=== PATIENT | female | born 1955 ===

== ENCOUNTER 2024-09-21 14:07 | Outpatient (AMB) | payer MEDICARE, BC, SELFPAY ==
--- NOTE | 2024-09-21 14:12 | A.OFFVIS_ITS ---
Intake Visit Reasons: renal cysts Intake Note: New Patient presents for initial visit for renal cysts Urology Medications: none Blood Thinner: none Sewage Screen Operator Required: No Accompanied by: Unknown Allergies Codeine Phosphate Allergy (Unknown, Uncoded 09/21/24 21:27) Vomiting Medication List - Last Reconciled 09/21/24 by Nivia Fernandez [facility]- letrozole 2.5 mg PO DAILY lisinopril-hydrochlorothiazide 20-25 mg 1 tab PO DAILY lorazepam mg PO methimazole mg PO omeprazole 20 mg PO DAILY HPI Comments Details: Lorie is a 68-year-old female patient of Dr. Tucker was accompanied by her significant other at today's office visit. She has a past medical history of breast cancer status post lumpectomy at [facility] through Dr. CEDENO, vitamin- D deficiency, GERD, thyroid nodule, and hypertension. She presents to the office today as a new patient for renal cyst. In discussion with the patient today she reports a longstanding history of a renal cyst and previously following up with Dr. Rojo as well as another urologist in the past however presents today to establish urological care. Recent ultrasound report completed through [facility] 06/29/2024 notes the right kidney measures 10.6 cm. A 1.7 cm thin walled anechoic cyst is present within the right kidney. A 0.7 cm cyst is present within the lower pole of the right kidney. No nephrolithiasis or hydronephrosis noted of bilateral kidneys. No evidence of a solid renal parenchymal lesion per radiology report. She brings with her to the office today a multitude of previous imaging results that were reviewed in detail. We discussed stability of renal cyst noted over the last 2-3 years with previous imaging that was brought to the office today by the patient. When asked she does report nocturia as well as episodes of stress incontinence. She otherwise denies urinary urgency, urinary frequency, hematuria, dysuria, foul smelling urine, changes to urinary stream, flank pain, fever, and or chills. She reports that although she experiences episodes of nocturia as well as stress incontinence she feels she is managing these well independently. We did discussed pelvic floor exercises to assist with stress incontinence as well as importance of limiting fluids 2-3 hours prior to bed to decrease episodes of nocturia. In office urinalysis results were reviewed with the patient today. She is happy with her current voiding parameters. History of Present Illness The patient is a 68-year-old female presenting with surveillance monitoring of a known simple renal cyst. The renal cyst was initially identified during an u ltrasound for uterine fibroids prior to the COVID-19 pandemic per patients history. The cyst has consistently appeared stable on a series of imaging studies over the years, including the most recent ultrasound conducted earlier this year, which recorded its size as 1.5 to 1.7 cm, without significant change. The patient reports nocturia episodes, waking up five times nightly, potentially influenced by fluid intake near bedtime. Additionally, she describes stress urinary incontinence linked to severe coughing episodes. 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 Plan For the surveillance of the simple renal cyst, continued routine assessments through a renal ultrasounds are advised to observe any significant changes over time. The cyst remains stable, and current evidence does not warrant further intervention. For nocturia, the patient is advised to limit fluid intake two to three hours prior to bedtime. Initial suggestions for managing stress urinary incontinence include pelvic floor strengthening exercises, with potential future consideration of urodynamic evaluation. Ultrasound monitoring is to occur in six months for reassessment of the renal cysts. Patient was informed and verbally consented to the use of an ambient scribe for clinic note documentation during this visit. Discussion Notes During our discussion, I addressed the stability of the patient's simple renal cyst, reassuring her of its benign nature and that routine imaging monitoring is sufficient at this time. We reviewed the importance of understanding variability in imaging results and the reassurance provided by consistent findings over each assessment. For nocturia, I recommended reducing fluid intake in the hours leading up to bedtime as a first-line lifestyle modification strategy. The possibility of stress urinary incontinence management through pelvic floor exercises and lifestyle modification was also reviewed. Future diagnostic urodynamic assessments may be considered if symptoms become more prominent. Patient consent for the planned management approach, including regular follow- ups and surveillance of the renal cyst, was obtained. [facility] Medical History Breast cancer Vitamin D deficiency GERD (gastroesophageal reflux disease) Elevated prolactin level Thyroid nodule Hypertension Surgical History History of lumpectomy History of hysteroscopy History of section History of breast biopsy Review of Systems Const All systems reviewed & are unremarkable except as noted in HPI and below Physical Exam Const General: cooperative, healthy appearing, comfortable, no acute distress, well developed, alert and awake Orientation/consciousness: patient oriented x3 Limitations: no limitations HEENT Head: Yes normal to inspection, Yes normocephalic and Yes atraumatic Ears: hearing grossly normal bilaterally Eyes General: appearance normal, both eyes and all related structures Neck Neck: Yes normal visual inspection and Yes trachea midline Chest Chest palpation & inspection: normal inspection of the chest Resp Effort & Inspection: normal respiratory effort and able to speak in complete sentences Cardio Rate: regular rate GI Inspection: Yes normal to inspection General: Yes no CVA tenderness Back/Spine/Pelvis Back: no CVA tenderness Skin General skin exam: no rashes or lesions noted Neuro General: patient oriented x3 Extrem General: Yes normal to inspection Psych Appearance: grossly normal and well kempt Mental Status: mental status grossly normal Speech and movement: Normal speech and movement present and Clear speech present Affect: normal affect Attitude: cooperative Thought process: Normal thought process present Thought content: Normal thought content present Insight: Fair insight present (Psych) Judgement: Fair judgement present (Psych) Results AMB Urinalysis, Automated UA Leukoctes 0 Cat/uL Last Edit by TRIBAX Miguel on 09/21/24 14:44 UA Nitrite Last Edit by Pijonjose on 09/21/24 14:44 UA Urobilinogen 0.2 mg/dL Last Edit by GroovinAdscachorro Rivera on 09/21/24 14:44 UA Protein 0 mg/dL Last Edit by TRIBAX Miguel on 09/21/24 14:44 UA pH 6.0 Last Edit by TRIBAX Miguel on 09/21/24 14:44 UA Blood 0 Ray/uL Last Edit by TRIBAX Miguel on 09/21/24 14:44 UA Specific Lennox 1.010 Last Edit by Cathycachorro Petersonjose on 09/21/24 14:44 UA Ketone Last Edit by Luzma Kristenjose on 09/21/24 14:44 UA Bilirubin 0 mg/dL Last Edit by Luzma Kristenjose on 09/21/24 14:44 UA Glucose 0 mg/dL Last Edit by Luzma Kristenjose on 09/21/24 14:44 Results Reviewed Results Reviewed: Laboratory Last Values Urine pH (Auto) 6.0 09/21/24 14:40 Specific Lennox (Auto) 1.010 09/21/24 14:40 Urine Protein (Auto) 0 mg/dL 09/21/24 14:40 Glucose (UA)(Auto) 0 mg/dL 09/21/24 14:40 Urine Blood (Auto) 0 Ray/uL 09/21/24 14:40 Urine Bilirubin (Auto) 0 mg/dL 09/21/24 14:40 Urine Urobilinogen (Auto) 0.2 mg/dL 09/21/24 14:40 Leukocyte Esterase (Auto) 0 Cat/uL 09/21/24 14:40 Assessment & Plan Assessment & Plan (1) Renal cyst: Code(s): N28.1 - Cyst of kidney, acquired Category: Medical (2) Stress incontinence: Code(s): N39.3 - Stress incontinence (female) (male) Category: Medical (3) Nocturia: Code(s): R35.1 - Nocturia Category: Medical Plan In office urinalysis results reviewed with the patient today; as noted above. We discussed at length classifications of renal cysts as well as surveillance monitoring. All questions were answered We discussed further treatment options of stress incontinence and risks and benefits of these treatment options; will continue with surveillance monitoring We discussed importance of limiting fluids 2-3 hours prior to bed to decrease episodes of nocturia. We discussed pelvic floor exercises Will obtain retroperitoneal ultrasound ultrasound in 6 months for surveillance monitoring Follow-up in 6 months with imaging and PVR; or sooner with any issues, concerns, and or questions Orders: Orders AMB Urinalysis Automated Today Z13.9 - Encounter for screening, unspecified US retroperitoneal comp 6 Months N28.1 - Cyst of kidney, acquired, N39.3 - Stress incontinence (female) (male), R35.1 - Nocturia Patient Instructions: The patient had an opportunity to ask questions regarding the treatment plan. All questions were answered. Physical exam, labs, and imaging were discussed and reviewed in detail. As well as risks, benefits, and discussion of treatment choices. No major barriers to understanding were identified. The patient expressed understanding and agreement with the above treatment plan. The patient was made aware they should contact our office by phone for worsening of their current condition, the appearance of new symptoms, or with any questions or concerns. Compliance is encouraged with any medications and follow up testing that is ordered. It is a privilege to be allowed the opportunity to participate in? your urological care.? Again, if you have any questions or concerns If you have any questions or concerns please do not hesitate to contact me. The office is [phone]. This note is constructed using voice recognition software. While every effort has been made to ensure accuracy weight loss counselor errors may have been included. Yours sincerely, KAMALJIT Morales Coding Level of Care Code New Pt Level 4 (24242) Diagnoses Renal cyst N28.1 Stress incontinence N39.3 Nocturia R35.1 Time Spent (min) 35
--- OUTSIDE RECORDS SUMMARY | 2024-09-21 16:55 | XMS_ITS | Clinical Summary ---
Author Organization [facility] Address [address] [place] [address] Care Team Providers Care Cost Engineer Name Role Phone Toan Tucker MD Primary Care Provider Oliva Spears MD Unavailable [phone] Allergies Active Allergy Reactions Criticality Noted Date Comments Codeine Nausea Only Low 02/15/2015 Medications lisinopril-hydro chlorothiazide (PRINZIDE,ZESTOR ETIC) 10-12.5 mg per tablet Take by mouth. Active cholecalciferol, vitamin D3, 1,000 unit capsule Take by mouth. Active methIMAzole (TAPAZOLE) 5 mg tablet Take 2.5 mg by mouth. 1 Active amoxicillin-pot clavulanate (AUGMENTIN) 875-125 mg per tablet 1 tablet. 3 Active letrozole (FEMARA) 2.5 mg chemo tablet Take 2.5 mg by mouth in the morning. Take with or without food.. Active LORazepam (ATIVAN) 0.5 mg tablet Take 0.5 mg by mouth daily as needed. 5 Active vit A/vit C/vit E/zinc/copper (PRESERVISION AREDS ORAL) Take by mouth daily. Active omeprazole (PriLOSEC) 20 mg capsule Take 1 capsule (20 mg total) by mouth in the morning. 30 capsule 2 5 08/28/19 25 Active Problems Problem Noted Date Diagnosed Date Flatulence 08/06/2024 Assessment & Plan (08/06/2024 12:46 PM EDT): - Counseled on foods that may cause increase flatulence - Recommended daily probiotic, OTC Align History of colon polyps 05/29/2024 Assessment & Plan (05/29/2024 4:06 PM EST): - Message received 01/2024 from from MRI pelvis ordering provider, Dr. Spears, about incidental finding of rectal wall thickening on 12/2023 MRI. Previously reviewed with Dr. Pagan who completed 06/2023 colonoscopy; no concern about rectal wall thickening given recent colonoscopy per Dr. Pagan - Pt agreeable to completing FIT testing at this time - Advised to contact GI clinic if any changes in bowels, abdominal pain, rectal bleeding, blood in stool, and/or unexplained weight loss Hepatic steatosis 05/29/2024 Assessment & Plan (08/06/2024 12:47 PM EDT): - Advised to complete previously ordered liver serologic work-up - Counseled again on weight loss Assessment & Plan (05/29/2024 4:19 PM EST): - Discussed findings of hepatic steatosis. Advised on importance of at least 10% weight loss of current body weight, Mediterranean diet, and avoidance of alcohol. Discussed risk of progression to liver fibrosis and cirrhosis - Liver serologic work-up ordered; pt agreed to complete - Repeat US elastography to eval for liver fibrosis Hepatic cyst 05/29/2024 Assessment & Plan (05/29/2024 4:19 PM EST): - Repeat US abdomen History of left breast cancer 12/10/2023 Fibroid uterus 12/10/2023 Gastroesophageal reflux disease 05/07/2023 Assessment & Plan (08/06/2024 12:44 PM EDT): - Pt would like to say on PPI omeprazole 20 mg once daily at this time. Advised can consider weaning off in the future - Recommended EGD for Bright's screening; reviewed pt's risk factors for Bright's: GERD >5 years, age >50, , BMI >30, prior smoker. Pt declined EGD At this time. Reviewed the importance of controlling heartburn/reflux symptoms for prevention of Bright's esophagus, which increases risk of esophageal cancer - Reviewed lifestyle modifications including antireflux diet, identifying/avoiding personal triggers, not eating 3 hrs before bedtime, weight loss, eating smaller/more frequent meals (4-6/day) Assessment & Plan (05/29/2024 4:18 PM EST): - Recommended PPI if heartburn/reflux symptoms twice or more a week. Advised PPI should be taken daily - Reviewed the importance of controlling heartburn/reflux symptoms for prevention of Bright's esophagus, which increases risk of esophageal cancer - Pt agreeable to daily PPI trial for 2-3 months at this time. Omeprazole 20 mg once daily prescribed - Reviewed lifestyle modifications including antireflux diet, identifying/avoiding personal triggers, not eating 3 hrs before bedtime, weight loss, eating smaller/more frequent meals (4-6/day) - Can consider EGD for Bright's screening or if symptoms persist or worsen. Reviewed alarm symptoms such as dysphagia Assessment & Plan (05/07/2023 4:55 PM EST): - Recommended PPI trial: omeprazole 20 mg once daily for 2 months. Instructed how to take properly - Reviewed lifestyle modifications including antireflux diet, identifying/avoiding personal triggers, not eating 3 hrs before bedtime, weight loss, eating smaller/more frequent meals (4-6/day) - Advised of importance of controlling heartburn/reflux for esophageal health, and prevention of Bright's esophagus which is considered precancerous - Advised to contact GI clinic if symptoms persist or worsen - Can consider EGD if heartburn/reflux persists or worsens History of diverticulitis 05/07/2023 Assessment & Plan (05/07/2023 4:58 PM EST): - Proceed with colonoscopy as scheduled - Advised to contact GI clinic if symptoms of diverticulitis return. Pt aware of alarm symptoms - Advised colonoscopy should be scheduled 6-8 weeks from diverticulitis flare, as increased risk of perforation if this duration is not waited Resolved Problems Problem Noted Date Diagnosed Date Resolved Date Diverticulitis 12/06/2022 05/07/2023 Assessment & Plan (12/06/2022 12:52 PM EDT): - Instructed to finish abx as prescribed. Recommended low-residue diet with treatment - Advised once symptoms resolve, recommend increasing dietary fiber for prevention of diverticulitis. Can consider daily fiber supplement such as Metamucil. Daily fiber goal about 30 grams/day - Discussed risk of possible complicated diverticulitis; and to go to ED with any severe or worsening abdominal pain, nausea, vomiting, fever, chills - Discussed indications for colonoscopy; and it is recommended pt waits 6-8 weeks from being treated for diverticulitis and from symptoms as higher risk for perforation. Advised to contact GI clinic if develops any symptoms of diverticulitis, including abdominal pain. Pt advised [facility] currently scheduling colonoscopies about 6+ months in advance. Pt states she was also referred to another GI that may be able to schedule colonoscopy for pt sooner - Advised to follow-up with PCP/prescriber if sx do not resolve by day 10 of diverticulitis treatment w/Augmentin - Colonoscopy ordered. TriLyte/Dulcolax prep - We had a discussion regarding colonoscopy and the risks including but not limited to complications of anesthesia, infection, bleeding, and perforation requiring surgery. Patient verbalized understanding of the indications and risks, and would like to proceed with scheduling the colonoscopy. Diverticulitis 12/06/2022 05/29/2024 Encounters Date Type Department Care Team Description 08/05/2024 3:40 PM EDT [facility] Visit [facility] Department of Gastroenterology [address] [place] [id number] Yasmine Colorado, SPAGHETTI PRESS HELPER Gastroesophageal reflux disease, unspecified whether esophagitis present (Primary Dx); Hepatic steatosis; Flatulence from Last 3 Months Family History Medical History Relation Comments Diabetes type II Brother Breast cancer Daughter 1 Prostate cancer Father Breast cancer Half-Sister Breast cancer Sister Colon cancer Neg Hx Esophageal cancer Neg Hx Stomach cancer Neg Hx Relation Status Comments Brother Alive Daughter 1 Alive Daughter 2 Alive Father Alive Half-Sister Alive Mother Alive Sister Alive diagnosed age 60 Social History Tobacco Use Types Packs/Day Years Used Date Smoking Tobacco: Former Smokeless Tobacco: Never Alcohol Use Standard Drinks/Week Comments No 0 (1 standard drink = 0.6 oz pur e alcohol) Comments No Sex and Gender Information Value Date Recorded Sex Assigned at Not on file Legal Sex Female 3:02 AM EST Gender Identity Not on file Sexual Orientation Not on file COVID-19 Exposure Response Date Recorded In the last 10 days, have yo u been in contact with someone who was confirmed or suspected to have Coronavirus/COVID-19? No / Unsure 09/09/2024 11:11 AM EDT Last Filed Vital Signs Vital Sign Reading Time Taken Comments Blood Pressure 125/74 08/05/2024 3:38 PM EDT Pulse 103 08/05/2024 3:38 PM EDT Temperature 36.7 ??C (98 ??F) 06/27/2023 8:15 AM EST Respiratory Rate 16 06/27/2023 8:45 AM EST Oxygen Saturation 98% 06/27/2023 8:45 AM EST Inhaled Oxygen Concentration - - Weight 82.1 kg (181 lb) 08/05/2024 3:38 PM EDT Height 149.9 cm (4' 11.02 ) 08/05/2024 3:38 PM E DT Body Mass Index 36.54 08/05/2024 3:38 PM EDT Plan of Treatment Upcoming Encounters Date Type Department Care Team (Late st Contact Info) Description 02/08/2025 1:00 PM EDT Office Visit [facility] [address] [place] [address] Oliva Spears MD [address] [facility] [place] [address] 02/22/2025 1:20 PM EDT Office Visit [facility] Department of Gastroenterology [address] [place] [address] Yasmine Colorado, SPAGHETTI PRESS HELPER [address] [facility] [address] Health Maintenance Due Date Last Done Comments CT Colonography 1955 FIT-DNA (Cologuard) 1955 FOBT 1955 Flex Sigmoidoscopy - 5y 1955 HIV Screening 1955 Medicare Annual Wellness (AWV) 1955 DTaP,Tdap,and Td Vaccines (1 - Tdap) 10/26/1973 Pneumococcal Vaccine, 50+ Years (1 of 2 - PCV) 10/26/1974 Zoster Vaccines (1 of 2) 10/26/2005 COVID-19 Vaccine (4 - season) 2024 03/03/2021, 08/17/2020, 07/27/2020 FIT 07/30/2025 07/30/2024 Breast Cancer Screening 12/18/2025 12/19/19 24, 12/19/2023, 01/08/2023, Additional history exists Colonoscopy 06/27/2028 06/27/2023 Colorectal Cancer Screening 06/27/2028 Pap Smear Discontinued 09/11/2022, 10/26, 03/19/2018 Bone Density Screening Completed 01/17/2023 Influenza Vaccine Completed 04/28/2024, , 05/03/2021, Additional history exists Hepatitis C Screening Completed 09/09/2024 HPV Vaccines Aged Out No longer eligi ble based on patient's age to complete this topic Hepatitis A Vaccines Aged Out No long er eligible based on patient's age to complete this topic Meningococcal Vaccine Aged Out No maria antonia jeremy eligible based on patient's age to complete this topic Procedures Procedure Name Priority Date/Time Associated Diagnosis Comments PROTHROMBIN TIME (PT) WITH INR Routine 09/09/2024 11:19 AM EDT Hepatic steatosis HEPATITIS B SURFACE ANTIGEN Routine 09/09/2024 11:19 AM EDT Hepatic steatosis HEPATITIS B SURFACE ANTIBODY QUANTITATIVE Routine 09/09/2024 11:19 AM EDT Hepatic steatosis HEPATITIS B CORE ANTIBODY, TOTAL Routine 09/09/2024 11:19 AM EDT Hepatic steatosis HEPATITIS A VIRUS ANTIBODIES, TOTAL Routine 09/09/2024 11:19 AM EDT Hepatic steatosis HEPATITIS C ANTIBODY Routine 09/09/2024 11:19 AM EDT Hepatic steatosis IRON, TIBC AND FERRITIN PANEL Routine 09/09/2024 11:19 AM EDT Hepatic steatosis CERULOPLASMIN Routine 09/09/2024 11:19 AM EDT Hepatic steatosis [id number] Routine 09/09/2024 1 1:19 AM EDT Hepatic steatosis IMMUNOGLOBULIN A, SERUM Routine 09/10/19 11:19 AM EDT Hepatic steatosis ANTIMITOCHONDRIAL ANTIBODY Routine 09/09/2024 11:19 AM EDT Hepatic steatosis FECAL IMMUNOCHEMICAL HB Routine 07/31/19 10:22 AM EST History of colon polyps COLONOSCOPY Routine 06/27/2023 7:42 AM EST Diverticulitis PAP TEST Routine 09/11/2022 5:24 PM EDT Encounter for gynecological examination without abnormal finding BI SCREENING MAMMOGRAM W TOMOSYNTHESIS BILATERAL Routine 04/21/2018 12:30 PM EST Encounter for gynecological examination without abnormal finding from Last 3 Months or Most Recently Relevant to Health Maintenance Results * Iron, TIBC, and Ferritin panel (09/09/2024 11:19 AM EDT) Iron 77 28 - 170 ug/dL 09/09/2024 1:32 PM EDT [facility] Iron Binding Capacity 419 260 - 490 ug/dL 09/09/2024 1:32 PM EDT [facility] % Saturation 18 % 09/09/2024 1:32 PM EDT [facility] Ferritin 51 6 - 307 ng/mL 09/09/2024 1:32 PM EDT [facility] Blood Venous blood specimen / Unknown Venipuncture / Unknown 09/09/2024 11:19 AM EDT 09/09/2024 11:19 AM EDT Yasmine Colorado SPAGHETTI PRESS HELPER LAB BLOOD ORDERABLES Carina l Result Performing Organization Address City/[facility] [address]/[facility] Co de Phone Number [facility] [address] [place] [address], [place] [phone] * Hepatitis C antibody (09/09/2024 11:19 AM EDT) Hepatitis C Antibody Negative Negative 09/09/2024 1:33 PM EDT [facility] Comment:Anti-HCV (HCVAb) Not Detected. Patient is presumed not to be infected with HCV. The possibility of exposure to HCV cannot be excluded. Blood Venous blood specimen / Unknown Venipuncture / Unknown 09/09/2024 11:19 AM EDT 09/09/2024 11:19 AM EDT Yasmine M Miroslava GONZALEZN LAB BLOOD ORDERABLES NO S TAT Final Result Performing Organization Address [facility] [address]/[facility] Co de Phone Number [facility] [address] [place] [address], [place] [phone] * [id number] (09/09/2024 11:19 AM EDT) Pathologist [facility] A-1 Antitrypsin 168 90 - 200 mg/dL 09/11/2024 2:37 PM EDT [facility] Comment: To convert to umol/L, multiply mg/dL by 0.185 Performed By: [employer] [address] [place] [id number] Digital Strategist: Angelo Villalta MD, PhD CLIA Number: [id number] Blood Venous blood specimen / Unknown Venipuncture / Unknown 09/09/2024 11:19 AM EDT 09/09/2024 11:19 AM EDT Yasmine Colorado SPAGHETTI PRESS HELPER LAB BLOOD ORDERABLES NO S TAT Final Result Performing Organization Address City/[facility] [address]/ZIP Co de Phone Number [facility] [employer] [address] [place] [address] * Hepatitis A virus antibodies, total (09/09/2024 11:19 AM EDT) [facility] Hepatitis A Total antibody Negative Negative 09/10/2024 8:48 PM EDT [facility] Comment: Performed By: [facility] [employer] [address] [place] [address] Digital Strategist: Angelo Villalta MD, PhD CLIA Number: [id number] Blood Venous blood specimen / Unknown Venipuncture / Unknown 09/09/2024 11:19 AM EDT 09/09/2024 11:19 AM EDT Yasmine Colorado APRN LAB BLOOD ORDERABLES NO S TAT Final Result Performing Organization Address [facility] [place] [address] * Ceruloplasmin (09/09/2024 11:19 AM EDT) [facility] Ceruloplasmin 31 16 - 45 mg/dL 09/11/2024 2:38 PM EDT [facility] Comment: REFERENCE INTERVAL: Ceruloplasmin Access complete set of age- and/or gender-specific reference intervals for this test in the [facility] Laboratory Test Directory ([employer]). Performed By: [facility] [address] [place] [address] Digital Strategist: Angelo Villalta MD, PhD CLIA Number: [id number] Blood Venous blood specimen / Unknown Venipuncture / Unknown 09/09/2024 11:19 AM EDT 09/09/2024 11:19 AM EDT Yasmine Colorado APRN LAB BLOOD ORDERABLES NO S TAT Final Result Performing Organization Address [facility] [address]/[facility] [place] [address] * Hepatitis B core antibody, total (09/09/2024 11:19 AM EDT) Hepatitis B Core Total Antibody, Qualitative Negative Negative 09/09/2024 1:33 PM EDT [facility] Comment:Anti-HBc (HBcAb) Not Detected. Specimen is negative for anti-HBc. Blood Venous blood specimen / Unknown Venipuncture / Unknown 09/09/2024 11:19 AM EDT 09/09/2024 11:19 AM EDT Yasmine Colorado APRN LAB BLOOD ORDERABLES NO S TAT Final Result [facility] [address] [place] [address], [place] [phone] * Antimitochondrial antibody (09/09/2024 11:19 AM EDT) Mitochondrial (M2) antibody, IgG 3.1 0.0 - 24.9 Units 09/11/2024 6:08 AM EDT [facility] Comment: REFERENCE INTERVAL: Mitochondrial (M2) Antibody, IgG ?20.0 Units or less ......... Negative ??20.1 - 24.9 Units........... Equivocal ??25.0 Units or greater....... Positive Anti-mitochondrial antibodies (AMA) are thought to be present in 90-95% of patients with primary biliary cholangitis (PBC). However, the frequency of detected antibodies may be cohort or assay dependent, as lower sensitivities have been reported. Not all PBC patients are positive for AMA; some patients may be positive for SP100 and/or GP210 antibodies. A negative result does not rule out PBC. Performed By: [employer] [address] [place] [address] Digital Strategist: Angelo Villalta MD, PhD CLIA Number: [id number] Blood Venous blood specimen / Unknown Venipuncture / Unknown 09/09/2024 11:19 AM EDT 09/09/2024 11:19 AM EDT Yasmine Colorado APRN LAB BLOOD ORDERABLES NO S TAT Final Result [facility] [address] [place] [address] * Hepatitis B surface antibody quantitative (09/09/2024 11:19 AM EDT) [facility] Hepatitis B Surface Antibody, Quantitative 0.80 <12.00 mIU/mL 09/09/2024 1:33 PM EDT [facility] Hepatitis B Surface Antibody Negative 09/09/2024 1:33 PM EDT [facility] Comment:Patient is considere d to be not immune to infection with Hepatitis B Virus. Blood Venous blood specimen / Unknown Venipuncture / Unknown 09/09/2024 11:19 AM EDT 09/09/2024 11:19 AM EDT Yasmine Colorado APRN LAB BLOOD ORDERABLES NO S TAT Final Result Performing Organization Address [facility] [address]/ZIP Co de Phone Number [facility] [address] [place] [address], [place] [phone] * Hepatitis B surface antigen (09/09/2024 11:19 AM EDT) [facility] Hepatitis B Surface Antigen Negative Negative 09/09/2024 1:33 PM EDT [facility] Comment:HBsAg Not Detected. Specimen is presumed to be negative for Hepatitis B surface Antigen. Blood Venous blood specimen / Unknown Venipuncture / Unknown 09/09/2024 11:19 AM EDT 09/09/2024 11:19 AM EDT Yasmine Colorado SPAGHETTI PRESS HELPER LAB BLOOD ORDERABLES NO S TAT Final Result [facility] [address] [place] [address], [place] [phone] * Prothrombin time (PT) with INR (09/09/2024 11:19 AM EDT) PT 11.7 10.4 - 13.0 seconds 09/09/2024 1:01 PM EDT [facility] INR 1.0 0.9 - 1.1 ratio 09/09/2024 1:01 PM EDT [facility] Blood Venous blood specimen / Unknown Venipuncture / Unknown 09/09/2024 11:19 AM EDT 09/09/2024 11:19 AM EDT Narrative [facility] - 09/09/2024 1:01 PM EDT Warfarin is monitored by the international normalized ratio (INR). ??The INR is calculated from the PT and is intended to allow valid comparisons of results regardless of the type of PT reagent used. ??The usual therapeutic goal is an INR of 2.0-3.0, however, the therapeutic range will vary depending on the indication for the use of oral anticoagulation. ??For further recommendations for the optimal therapeutic range for various indications refer to Chest 141:Supplement:2012 - ANTITHROMBOTIC THERAPY AND PREVENTION OF THROMBOSIS, 9TH ED: ACCP GUIDELINES. Yasmine Colorado APRN LAB BLOOD ORDERABLES Carina l Result [facility] [address] [place] [address], [place] [phone] * Immunoglobulin A, Serum (09/09/2024 11:19 AM EDT) IgA 194 82 - 460 mg/dL 09/09/2024 1:10 PM EDT [facility] Blood Venous blood specimen / Unknown Venipuncture / Unknown 09/09/2024 11:19 AM EDT 09/09/2024 11:19 AM EDT Yasmine Colorado APRN LAB BLOOD ORDERABLES NO S TAT Final Result [facility] [address] [place] [address], [place] [phone] * Fecal immunochemical Hb (07/30/2024 10:22 AM EST) Fecal Immunochemical Hemoglobin Negative Negative 07/30/2024 12:41 PM EST [facility] Comment:This is a screening test for colorectal cancer or gastrointestinal bleed. This test has 97% specificity for detection of lower gastrointestinal bleeding in colorectal cancer. This test will not detect upper gastrointestinal bleeding. Stool Anal structure / Unknown Non-blood Collection / Unknown 07/30/2024 10:22 AM EST 07/30/2024 10:22 AM EST Yasmine Colorado APRN LAB BODY FLUIDS AND STOOL S ORDERABLES Final Result [facility] [address] [place] [address], * COLONOSCOPY (06/27/2023 7:42 AM EST) 06/27/2023 7:42 AM EST Narrative [facility] - 06/27/2023 8:13 AM EST Patient Name: Lara Jim Date of : 1955 Procedure Date: 06/27/2023 7:42 AM Procedure: ? Colonoscopy Endoscopist: ? Vika Pagan MD (Doctor) Referring MD: ?Toan Tucker MD (Referring MD) Indications: ? Follow-up of diverticulitis Attending Participation: I personally performed the entire procedure. Procedure: ? Pre-Anesthesia Assessment: ? - Prior to the procedure, a History and ? Physical was performed, and patient ? medications, allergies and sensitivities ? were reviewed. The patient's tolerance of ? previous anesthesia was reviewed. ? - The risks and benefits of the procedure ? and the sedation options and risks were ? discussed with the patient. All questions ? were answered and informed consent was ? obtained. ? - Patient identification and proposed ? procedure were verified prior to the ? procedure by the physician, the nurse, the ? poke in and the strain technician. The ? procedure was verified in the pre-procedure ? area in the procedure room in the endoscopy ? suite. ? -Endoscopic procedures are exempt from a ? surgical site marking.Preparation: EKG, ? pulse, pulse oximetry, and blood pressure ? were monitored throughout the procedure. ? Capnography was monitored throughout ? procedure. The patient was kept NPO for ? four hours prior to the procedure. An ? intravenous line was inserted. The ? [id number] scope was introduced ? through the anus and advanced to the cecum, ? identified by appendiceal orifice and ? ileocecal valve. The colonoscopy was ? performed without difficulty. The patient ? tolerated the procedure well. The quality ? of the bowel preparation was adequate. The ? quality of the bowel preparation was ? evaluated using the BBPS (Winthrop Bowel ? Preparation Scale) with scores of: Right ? Colon = 3, Transverse Colon = 3 and Left ? Colon = 3 (entire mucosa seen well with no ? residual staining, small fragments of stool ? or opaque liquid). The total BBPS score ? equals 9. Medicines: ? Propofol per Anesthesia Findings: ? The perianal and digital rectal examinations were normal. ? Small and large-mouthed diverticula were found in the colon. ? An 8 mm polyp was found in the sigmoid colon. The polyp was ? sessile. The polyp was removed with a cold snare. Resection and ? retrieval were complete. ? A diminutive polyp was found in the cecum. The polyp was flat. ? The polyp was removed with a cold snare. Resection and ? retrieval were complete. ? The terminal ileum appeared normal. Estimated Blood Loss: ?Estimated blood loss: none. Unplanned Events: ?No immediate complications. Summary: ? - Diverticulosis. ? - One 8 mm polyp in the sigmoid colon, ? removed with a cold snare. Resected and ? retrieved. ? - One diminutive polyp in the cecum, ? removed with a cold snare. Resected and ? retrieved. ? - The examined portion of the ileum was ? normal. Recommendation: ?- Written discharge instructions were ? provided to the patient. ? - The signs and symptoms of potential ? delayed complications were discussed with ? the patient. ? - Resume previous diet. ? - Await pathology results. ? - Repeat colonoscopy date to be determined ? after pending pathology results are ? reviewed for surveillance. ? - Return to referring physician. ? - Continue present medications. Procedure Code(s): ? --- Professional --- ? 76530, Colonoscopy, flexible; with removal ? of tumor(s), polyp(s), or other lesion(s) ? by snare technique Diagnosis Code(s): ? --- Professional --- ? D12.5, Benign neoplasm of sigmoid colon ? D12.0, Benign neoplasm of cecum ? K57.32, Diverticulitis of large intestine ? without perforation or abscess without ? bleeding ? K57.30, Diverticulosis of large intestine ? without perforation or abscess without ? bleeding CPT copyright 2020 [employer]. All rights reserved. The codes documented in this report are preliminary and upon elementary esl teacher review may be revised to meet current compliance requirements. MD Vika Rogers MD 06/27/2023 8:13:15 AM Electronically Authenticated and Edited by: Vika Pagan MD Number of Addenda: 0 ? [address] [address] Tel: [phone] us Vika Pagan MD GI PROCEDURE Final Result [facility] [address] [place] [address], [place] [phone] * Pap Test (09/11/2022 5:24 PM EDT) Case Report Cytology ?Case: [id number] ? Authorizing Provider: ??Oliva Spears MD ?? Collected: ? 09/11/2022 1724 ? Ordering Location: ? [facility] Department of Received: ?09/12/2022 0825 ? [facility] ? Matt ? First Screen: ?Mata Robledo BS CT (ASCP) ? Specimen: ?Cytopathology, screening PAP test, Cervix ? 09/13/2022 11:05 AM [facility] LMP Not provided 09/13/2022 11:05 AM [facility] Interpretation Negative for intraepithelial lesion or malignancy 09/13/2022 11:05 AM [facility] at 1105 EDT Specimen Adequacy Satisfactory for evaluation, endocervical/pendleton sformation zone component present 09/13/2022 11:05 AM [facility] Specimen Processing Thin Prep pap with manual screen/rescreen or review 09/13/2022 11:05 AM [facility] Educational Note The Pap test is a screening test which carries an inherent false negative rate. These test results should be correlated with the patient's clinical findings and history. 09/13/2022 11:05 AM [facility] Embedded Images 11:05 AM [facility] High Risk HPV Nucleic Acid Detection Negative 09/13/2022 11:05 AM [facility] Comment: Negative results indicate HPV E6/E7 mRNA of the 14 high-risk types of HPV was not detected. NOTE: Negative results may occur with HPV E6/E7 mRNA concentrations that are below the pre-set limit of detection threshold for this assay. Results of this test should only be interpreted in conjunction with information available from the clinical evaluation of the patient and patient history. The APTIMA HPV Assay is a target amplification nucleic acid probe test for the in vitro qualitative detection of E6/E7 viral messenger RNA (mRNA), from 14 high- risk HPV types of human papillomavirus (HPV) (16/18/31/33/35/39/45/51/52/56/58/59/66/68) in cervical specimens collected in ThinPrep Pap Test vials containing PreservCyt Solution. The APTIMA HPV Assay does not discriminate between the 14 high-risk types. ??If clinically indicated, positive samples may be additionally tested with the APTIMA HPV 16 18/45 Genotype Assay to assess the presence or absence of high- risk HPV genotypes 16, 18 and/or 45. These results are not intended to be the sole means for clinical diagnosis and should always be correlated with other patient findings, including cytology, histology, and clinical evaluation. APTIMA HPV Assay assay was performed and reported by the Microbiology Laboratory, Department of Pathology and Laboratory Medicine at [facility] Brushing Cervix uteri structure / Unknown Non-blood Collection / Unknown 09/11/2022 5:24 PM EDT 09/12/2022 8:25 AM EDT us Oliva Spears MD LAB PATHOLOGY/CYTOLOGY OR DERABLES Final Result [facility] [address] [place] [address], * BI Screening mammogram W tomosynthesis bilateral (04/21/2018 12:30 PM EST) Anatomical Region Laterality Modality Breast Bilateral Mammography 04/21/2018 1:45 PM EST Impressions 04/21/2018 3:19 PM EST 1. No mammographic evidence of malignancy. 2. Heterogeneously dense. Please refer to the concurrent bilateral breast ultrasound examination performed today for further evaluation. BIRADS Category 2 - Benign Findings. ?? RECOMMENDATION: Annual screening mammography is recommended in 12 months. Your patient has dense breast ??tissue on mammography, which could hide small abnormalities. In compliance with [place] Public Act [place] 09-41 the patient has been sent a letter which informs her that she has dense breast tissue and might benefit from supplementary screening tests such as breast ultrasound screening or a breast MRI examination depending on her individual risk factors. The patient may contact you if she has any questions or concerns. Narrative 04/21/2018 3:19 PM EST BILATERAL DIGITAL 2D and 3D (TOMOSYNTHESIS) SCREENING MAMMOGRAPHY CLINICAL DATA/INDICATIONS: BI SCREENING MAMMOGRAM W TOMOSYNTHESIS BILATERAL 04/21/2018 12:15 PM ? Patient : 1955 Z12.31 Encounter for screening mammogram for malignant neoplasm of breast Z80.3 Family history of malignant neoplasm of breast HISTORY: Encounter for screening mammogram. Sister with a history of breast cancer. No personal history of breast cancer. Prior left breast biopsy with benign results. No current complaints. COMPARISON: Mammographic examinations performed in 2016 and 2017. TECHNIQUE: Bilateral full field digital mammography (2D) and tomosynthesis (3D) was performed using CC and MLO projections. CAD R2 9.3 was used to evaluate this mammogram. FINDINGS: Heterogeneously dense, which may obscure small masses. Two anterior depth biopsy clips remain in unchanged position within the left breast. Bilateral typically benign scattered calcifications remain present. No new suspicious masses, microcalcifications, or areas of architectural distortion are present. Stable overall parenchymal pattern with typically benign asymmetries. ? No lymphadenopathy. Oliva Spears MD IMG BI PROCEDURES Final R esult from Last 3 Months or Most Recently Relevant to Health Maintenance Insurance MEDICARE PART A & B [facility] Advance Directives For more information, please contact: [phone] Documents on File Type Date Recorded Patient Parcel Post Clerk Reina wilhelm Advance Directives 06/28/2023 9:46 AM Care Teams Cost Engineer Relationship Specialty Start Date End Date Toan Tucker MD [address] [place] [address] PCP - General 07/24/17 Oliva Spears MD [address] [place] [address] [place] [address] Obstetrics and Gynecology 04/27/21
--- OUTSIDE RECORDS SUMMARY | 2024-09-21 16:55 | XMS_ITS | Clinical Summary ---
Author Organization [facility] Address [facility] [place] [address] Phone Care Team Providers Care Aerial Installer Name Role Phone Toan Tucker MD Primary Care Provider [phone] Allergies Active Allergy Reactions Criticality Noted Date Comments Codeine Nausea Only Low 02/15/2015 Medications cholecalciferol (VITAMIN D-3) 25 mcg (1,000 unit) capsule Take by mouth. Activ e lisinopril-hydro CHLOROthiazide (PRINZIDE,ZESTOR ETIC) 20-25 mg per tablet Take 1 tablet by mouth daily. 8 Active LORazepam (ATIVAN) 0.5 mg tablet Take 1 tablet (0.5 mg total) by mouth daily as needed. 3 Active methIMAzole (TAPAZOLE) 5 mg tablet Take 0.5 tablets (2.5 mg total) by mouth daily. 4 Active omeprazole (PriLOSEC) [address] capsule 4 Active glucos sul 2KCl/msm/chond/C /Mn (GLUCOSAMINE CHONDROITIN ORAL) MISC NATURAL PRODUCTS (GLUCOSAMINE CHONDROITIN ADV PO): daily. Active Medical History Medical History Date Comments High blood pressure DX:High bloo d pressure Family History Medical History Relation Name Comments Diabetes Brother Hypertension Brother Cancer Father Hypertension Father Arthritis Mother Hyperlipidemia Mother Hypertension Mother Cancer Sister Diabetes Sister Hypertension Sister Relation Name Status Comments Brother Father Mother Sister Social History Tobacco Use Types Packs/Day Years Used Date Smoking Tobacco: Never Smokeless Tobacco: Never Alcohol Use Standard Drinks/Week Comments No 0 (1 standard drink = 0.6 oz pur e alcohol) Comments Unknown Sex and Gender Information Value Date Recorded Sex Assigned at Not on file Legal Sex Female 4:09 AM EST Gender Identity Not on file Sexual Orientation Not on file Obstetrics History Last Filed Vital Signs Vital Sign Reading Time Taken Comments Blood Pressure 136/68 09/02/2023 9:58 AM EDT Sitting Left arm Pulse 102 09/02/2023 9:58 AM EDT Temperature - - Respiratory Rate - - Oxygen Saturation - - Inhaled Oxygen Concentration - - Weight 83.9 kg (185 lb) 09/02/2023 9:58 AM EDT Height 148.6 cm (4' 10.5 ) 09/02/2023 9 :58 AM EDT Body Mass Index 38.01 09/02/2023 9:58 AM EDT Plan of Treatment Upcoming Encounters Date Type Department Care Team (Late st Contact Info) Description 01/11/2025 12:45 PM EDT Office Visit [facility] [address] [address] Bettye Pro MD [address] [place] [address] Health Maintenance Due Date Last Done Comments Breast Cancer Screening 1955 DTaP,Tdap,and Td Vaccines (1 - Tdap) 10/26/1974 Pneumococcal Vaccine: 50+ Ye ars (1 of 1 - PCV) 10/26/2005 Zoster Vaccines (1 of 2) 10/26/2005 Colorectal Cancer Screening: Colonoscopy 06/30/2023 Depression Screening 06/30/2023 Falls Risk Assessment 06/30/2023 Hepatitis C Screening 06/30/2023 Medicare Annual Wellness Visit 06/30/2023 Osteoporosis Screening (Bone Density Screening) 06/30/2023 Social Influencers of Health Screening 06/30/2023 COVID-19 Vaccine ( - 2023-2 5 season) 2024 Influenza Vaccine (Season Ended) 2025 RSV Immunization Adult Patie nts (1 - 1-dose 75+ series) 10/26/2030 HIB Vaccines Aged Out No longer eligi ble based on patient's age to complete this topic HPV Vaccines Aged Out No longer eligi ble based on patient's age to complete this topic Hepatitis A Vaccines Aged Out No long er eligible based on patient's age to complete this topic Hepatitis B Vaccines Aged Out No long er eligible based on patient's age to complete this topic IPV Vaccines Aged Out No longer eligi ble based on patient's age to complete this topic MMR Vaccines Aged Out No longer eligi ble based on patient's age to complete this topic Meningococcal ACWY Vaccine Aged Out N o longer eligible based on patient's age to complete this topic Meningococcal B Vaccine Aged Out No l onger eligible based on patient's age to complete this topic RSV Immunization Patients Un tr 20 months Aged Out No longer eligible b ased on patient's age to complete this topic Varicella Vaccines Aged Out No longer eligible based on patient's age to complete this topic Insurance MEDICARE Care Teams Aerial Installer Relationship Specialty Start Date End Date Toan Tucker MD [address] [place] [address] PCP - General 08/29/23
--- OUTSIDE RECORDS SUMMARY | 2024-09-21 16:55 | XMS_ITS | Encounter Summary ---
Author Organization [facility] Address [address] [place] [address] Care Team Providers Care Emergency Management Coordinator Name Role Phone Toan Tucker MD Primary Care Provider [phone] Oliva Spears MD Unavailable [phone] Encounter Details Date Type Department Care Team (Late Contact Info) Description 05/04/2022 Orders Only [address] [address] Oliva Spears MD [address] [place] [address] OFFICE [place], [place] [id number] Uterine leiomyoma, unspecified location (Primary Dx) Social History Tobacco Use Types Packs/Day Years Used Date Smoking Tobacco: Former Smokeless Tobacco: Never Alcohol Use Standard Drinks/Week Comments No 0 (1 standard drink = 0.6 oz pur e alcohol) Comments No Sex and Gender Information Value Date Recorded Sex Assigned at Not on file Legal Sex Female 3:02 AM EST Gender Identity Not on file Sexual Orientation Not on file documented as of this encounter Plan of Treatment Upcoming Encounters Date Type Department Care Team (Late Contact Info) Description 02/08/2025 1:00 PM EDT Office Visit [address] [address] Oliva Spears MD [address] [place] [address] [place] [address] 02/22/2025 1:20 PM EDT Office Visit [facility] Department of Gastroenterology [address] [place] [address] Yasmine [place], [place] ADMINISTRATOR [address] [facility] [id number] documented as of this encounter Visit Diagnoses Diagnosis Uterine leiomyoma, unspecified location- Primary documented in this encounter Care Teams Emergency Management Coordinator Relationship Specialty Start Date End Date Toan Tucker MD [address] [address] PCP - General 07/24/17 Oliva Spears MD [address] [place] [address] [place] [address] Obstetrics and Gynecology 04/27/21 documented as of this encounter
--- OUTSIDE RECORDS SUMMARY | 2024-09-21 16:55 | XMS_ITS ---
Author Name [facility] Organization Unknown Results Test Name/Text Value Interpretation Date Range Source CERULOPLASMIN 31mg/dL Normal [id number] 16 - 45 [facility] [id number] 168mg/dL Normal [id number] 90 - 20 0 [facility] MITOCHONDRIAL (M2) ANTIBODY, IGG 3.1Units Normal [id number] 0 - 24.9 [facility] HEPATITIS A ANTIBODIES, TOTAL Negative Normal [id number] - [facility] HEPATITIS C ANTIBODY (IA5) Negative Normal [id number] - [facility] HEPATITIS B SURFACE ANTIGEN (IA5) Negative Normal [id number] - [facility] HEPATITIS B VIRUS CORE AB, QUAL (IA5) Negative Normal [id number] - [facility] HEPATITIS B SURFACE AB, QUANT 0.8mIU/mL Normal [id number] - 12 [facility] HEPATITIS B SURFACE ANTIBODY Negative Normal [id number] [facility] IRON 77ug/dL Normal [id number] 28 - 170 [facility] IRON BINDING CAPACITY 419ug/dL Normal [id number] 260 - 490 [facility] IRON SATURATION (%) IN SER/PLAS 18% Normal [id number] [facility] FERRITIN 51ng/mL Normal [id number] 6 - 307 [facility] IMMUNOGLOBULIN A 194mg/dL Normal [id number] 82 - 460 [facility] INR 1ratio Normal [id number] 0.9 - 1.1 [facility] PROTHROMBIN TIME (PT) 11.7seconds Normal [id number] 10. 4 - 13 [facility] FECAL IMMUNOCHEMICAL HB (QUALITATIVE INTERPRETATION) Negative Normal [id number] - [facility] POCT CREATININE 0.9mg/dL Normal [id number] 0.6 - 1.2 C [facility] ISTAT SAMPLE TYPE unknown Normal [id number] [facility] LAB AP CLINICAL INFORMATION Left breast 12:00/1:00 1.2 cm mass 3 cm from nipple with an associated biopsy marker clip. Ultrasound-guided needle core biopsies were performed; 5 cores obtained (per radiology note; chart review). Normal [id number] [facility] History of Medication Use Medication Directions Dispensed Refills Start Date End Date Stat us LORazepam (ATIVAN) 0.5 mg tablet Take 0.5 mg by mouth daily as needed. 07/16/2024 active omeprazole (PriLOSEC) 20 MG capsule 08/25/2023 active amoxicillin 875 mg-potassium clavulanate 125 mg tablet TAKE 1 TABLET BY MOUTH EVERY 12 HOURS FOR 10 DAYS active Flowflex COVID-19 Antigen Home Test kit USE DIRECTED active loteprednol etabonate 0.5 % eye drops,suspension INSTILL 1 DROP TWICE A DAY INTO BOTH EYES active peg-electrolyte solution 420 gram oral solution FOR COLONOSCOPY -PLEASE FOLLOW TRILYTE/DULCOLAX PREP INSTRUCTIONS PROVIDED DURING OFFICE VISIT active vit A/vit C/vit E/zinc/copper (PRESERVISION AREDS ORAL) Take by mouth daily. acti ve Problems Problem Status Onset Date Problem Type Date of Resolution Source Hepatic cyst active 2024-05-29 ProblemAct [facility] History of left breast cancer active 2023-12-10 ProblemAct [facility] History of diverticulitis active 2023-05-07 ProblemAct [facility] Flatulence active 2024-08-06 ProblemAct [facility] Fibroid uterus active 2023-12-10 ProblemAct [facility] Hepatic steatosis active 2024-05-29 ProblemAct [facility] History of colon polyps active 2024-05-29 ProblemAct [facility] Gastroesophageal reflux disease active 2023-05-07 ProblemAct [facility] Osteoarthritis of left knee joint active 2023-11-25 ProblemAct [facility] Osteoarthritis of right knee joint active 2022-11-19 ProblemAct [facility] Pain of left knee joint active 2022-11-19 ProblemAct [facility] Pain of right knee joint active 2023-11-25 ProblemAct [facility] Toxic multinodular goiter active EncounterDiagnosisAct [facility] Encounters Encounter Type Encounter Reason Primary Diagnosis Location Date Ambulatory Fatty (change of) liver, not elsewhere c Fatty (change of) liver, not elsewhere classified [facility] 09/09/2024 Ambulatory Fatty (change of) liver, not elsewhere c Fatty (change of) liver, not elsewhere classified [facility] 08/05/2024 Ambulatory Gastro-esophageal reflux disease without Gastro-esophageal reflux disease without esophagitis [facility] 08/05/2024 Ambulatory Fatty (change of) liver, not elsewhere c Fatty (change of) liver, not elsewhere classified [facility] 06/02/2024 Ambulatory Fatty (change of) liver, not elsewhere c Fatty (change of) liver, not elsewhere classified [facility] 05/29/2024 Ambulatory Leiomyoma of uterus, unspecified Leiomyoma of uterus, unspecified [facility] 01/25/2024 Ambulatory Leiomyoma of uterus, unspecified Leiomyoma of uterus, unspecified [facility] 12/10/2023 Ambulatory [facility] 11/25/2023 Ambulatory [facility] 10/30/2023 Ambulatory 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 [facility] [place] Ambulatory Leiomyoma of uterus, unspecified Leiomyoma of uterus, unspecified [facility] 05/31/2023 Ambulatory Abnormal findings on diagnostic imaging Abnormal findings on diagnostic imaging of other abdominal regions, including retroperitoneum [facility] 05/31/2023 Ambulatory Gastro-esophageal reflux disease without Gastro-esophageal reflux disease without esophagitis [facility] 05/07/2023 Ambulatory [facility] 12/21/2022 Ambulatory [facility] 12/21/2022 Ambulatory [facility] 12/21/2022 Ambulatory [facility] 12/21/2022 Ambulatory [facility] 12/21/2022 Ambulatory [facility] 12/21/2022 Ambulatory [facility] 12/21/2022 Ambulatory [facility] 12/21/2022 Ambulatory Unspecified lump in the left breast, upp Unspecified lump in the left breast, upper outer quadrant [facility] 12/21/2022 Ambulatory Unspecified lump in the left breast, upp Unspecified lump in the left breast, upper outer quadrant [facility] 12/21/2022 Ambulatory Diverticulitis o f intestine, part unspecified, without perforation or abscess without bleeding [facility] 12/06/2022 Ambulatory [facility] 11/19/2022 Ambulatory [facility] 11/19/2022 Ambulatory [facility] 10/08/2022 Ambulatory Encounter for gynecological examination (general) (routine) without abnormal findings [facility] 09/11/2022 Care Team Organization Name Specialty Phone Email Start Date End Da te [facility]2023 [facility] 03/29/2023 024 [facility] 09/11/2022 0 [facility]
--- OUTSIDE RECORDS SUMMARY | 2024-09-21 16:55 | XMS_ITS | Clinical Summary ---
Author Organization [facility] Address [address] [place] [address] Care Team Providers Care Parts Identifier Name Role Phone Unavailable Primary Care Provider Unavailabl e Social History Tobacco Use Types Packs/Day Years Used Date Smoking Tobacco: Never Assessed Comments Unknown Sex and Gender Information Value Date Recorded Sex Assigned at Not on file Legal Sex Female 3:16 PM EDT Gender Identity Not on file Sexual Orientation Not on file Plan of Treatment Health Maintenance Due Date Last Done Comments Hepatitis C Virus Screening 1955 DTaP/Tdap/Td Vaccines (1 - Tdap) 10/26/1974 Pneumococcal Vaccines 50+ (1 of 1 - PCV) 10/26/2005 Zoster (Shingles) Vaccine (1 of 2) 10/26/2005 COVID-19 Vaccine ( - 2023-2 5 season) 2024 RSV Vaccine 60 years and old er and Patients (1 - 1-dose 75+ series) 10/26/2030 Hepatitis B Vaccines Aged Out No long er eligible based on patient's age to complete this topic
--- OUTSIDE RECORDS SUMMARY | 2024-09-21 16:56 | XMS_ITS | Clinical Summary ---
Author Organization [facility] Address [address] [place] [address] Care Team Providers Care Contract Administrator Name Role Phone Toan Tucker MD Primary Care Provider [phone] Allergies Active Allergy Reactions Criticality Noted Date Comments Codeine Nausea Only Low 02/15/2015 Medications Medication Sig Dispensed Refills Start Date End Date Status lisinopril-hydrochloro thiazide (PRINZIDE,ZESTORETIC) tablet 20-25 mg Take 1 tablet by mouth daily. 1 11/07/2017 Active Misc Natural Products (GLUCOSAMINE CHONDROITIN ADV PO) daily. 0 Activ e Cholecalciferol (D3-1000) 25 MCG (1000 UT) capsule Take by mouth. 0 Active LORazepam (ATIVAN) 0.5 MG tablet Take 1 tablet (0.5 mg total) by mouth daily as needed. 0 01/13/2023 Active omeprazole (PriLOSEC) 20 MG capsule 0 08/25/2023 Active methIMAzole (TAPAZOLE) tablet 5 mgIndications:Toxic multinodular goiter Take 0.5 tablets (2.5 mg total) by mouth daily. 90 tablet 3 09/05/2023 Active Active Problems No known active problems Family History Medical History Relation Name Comments Diabetes Brother Hypertension Brother Cancer Father Hypertension Father Arthritis Mother Hyperlipidemia Mother Hypertension Mother Cancer Sister Diabetes Sister Hypertension Sister Relation Name Status Comments Brother Father Mother Sister Social History Tobacco Use Types Packs/Day Years Used Date Smoking Tobacco: Never Smokeless Tobacco: Never Tobacco Cessation:Counseling Given: Not Answered Alcohol Use Standard Drinks/Week Comments No 0 (1 standard drink = 0.6 oz pur e alcohol) Sex and Gender Information Value Date Recorded Sex Assigned at Female 05/13/2019 3:13 PM EST Gender Identity Female 05/13/2019 3:13 PM EST Sexual Orientation Not on file Job Start Date Occupation Industry Not on file Not on file Not on file Last Filed Vital Signs Vital Sign Reading Time Taken Comments Blood Pressure 136/68 09/02/2023 9:58 AM EDT Pulse 102 09/02/2023 9:58 AM EDT Temperature - - Respiratory Rate 16 12/27/2017 9:50 AM EDT Oxygen Saturation - - Inhaled Oxygen Concentration - - Weight 83.9 kg (185 lb) 09/02/2023 9:58 AM EDT Height 148.6 cm (4' 10.5 ) 09/02/2023 9:58 AM ED T Body Mass Index 38.01 09/02/2023 9:58 AM EDT Plan of Treatment Health Maintenance Due Date Last Done Comments Hepatitis C Screening 1955 COVID-19 Vaccine (#1) 04/27/1956 Depression Screening 1967 BMI Counseling 10/26/1973 Preventative Health Evaluation 10/26/1973 DTap / Tdap / Td (1 - Tdap) 10/26/1974 Colon Cancer Screening (Colonoscopy) 10/26/2000 Breast Cancer Screening (Mammogram) 10/26/2005 Shingrix-Zoster Vaccine (1 of 2) 10/26/2005 Fall Risk Assessment 10/26/2020 Osteoporosis Screening (DEXA Scan) 10/26/2020 Pneumococcal Vaccine (1 of 1 - PCV) 10/26/2020 Influenza Vaccine (#1) 2024 RSV Adult > 60+ Yrs or Pregn ant (1 - 1-dose 75+ series) 10/26/2030 Hepatitis B Vaccines Aged Out No long er eligible based on patient's age to complete this topic RSV Ped < 20 months Aged Out No longe r eligible based on patient's age to complete this topic Care Teams Contract Administrator Relationship Specialty Start Date End Date Toan Tucker MD [address] [place] [id number] PCP - General Internal Medicine 08/29/23
--- OUTSIDE RECORDS SUMMARY | 2024-09-21 16:56 | XMS_ITS | Encounter Summary ---
Author Organization [facility] Address [address] [place] [address] Care Team Providers Care Vocational Guidance Counselor Name Role Phone Toan Tucker MD Primary Care Provider [phone] Oliva Spears MD Unavailable [phone] Encounter Details Date Type Department Care Team (Late st Contact Info) Description 05/09/2023 Orders Only [facility] Department of Women's Health [address] [address] Oliva Spears MD [address] [facility] OFFICE [place], [place] [id number] Social History Tobacco Use Types Packs/Day Years [...] suspected to have Coronavirus/COVID-19? No / Unsure 05/07/2023 2:13 PM EST documented as of this encounter Progress Notes * Oliva Spears MD - 05/09/2023 9:31 AM EST documented in this encounter Plan of Treatment Upcoming Encounters Date Type Department Care Team (Late st Contact Info) Description 02/08/2025 1:00 PM EDT Office Visit [facility] [place] [address] [place] [address] Oliva Spears MD [address] [facility] [place] [address] 02/22/2025 1:20 PM EDT Office Visit [facility] [address] [place] [address] Yasmine Colorado, FURNITURE REPAIRER [address] [facility] [address] documented as of this encounter Visit Diagnoses Not on filedocumented in this encounter Care Teams Vocational Guidance Counselor Relationship Specialty Start Date End Date Toan Tucker MD [facility] [address] [facility] [place] [address] PCP - General 07/24/17 Oliva Spears MD [address] [place] [address] [place] [address] Obstetrics and Gynecology 04/27/21 documented as of this encounter
== END 2024-09-21 15:10 | disposition home or self-care (01) ==
LOC: HO.HUSH 14:08
PROVIDERS: PCP Internal Medicine; Visit Provider Nurse Practitioner Family
DX: N28.1 Cyst of kidney, acquired (principal); N39.3 Stress incontinence (female) (male); R35.1 Nocturia; Z13.9 Encounter for screening, unspecified
CPT/HCPCS: 99204

== ENCOUNTER → 2024-09-21 14:07 | Outpatient (BNVA) | payer MEDICARE, BC, SELFPAY | PROVIDERS: PCP Internal Medicine; Visit Provider Nurse Practitioner Family | DX: N28.1 Cyst of kidney, acquired (principal); N39.3 Stress incontinence (female) (male); R35.1 Nocturia | CPT/HCPCS: 81003; 99202 ==

== ENCOUNTER 2025-05-11 12:56 | Outpatient (AMB) | payer MEDICARE, BC, SELFPAY ==
--- OUTSIDE RECORDS SUMMARY | 2024-07-20 09:20 | XMS_ITS ---
Author Organization [facility] Address [address] [place] [address] Care Team Providers Care Inspector Machine Cut Glass Name Role VERONIKA Chacon Primary Care Provider [phone] PARADISE TEJEDA [phone] REASON FOR VISIT KS/28/Cough and chest congestion/Doximity Encounters Encounter Location Date Provider Diagnosis [address] [id number] 07/20/2024 PARADISE TEJEDA Plan Of Treatment Next Appt Details Provider Name:VERONIKA LAWSON, 0 07/15/2025 02:00:00 PM, [address] [place] [address], [id number], Progress Notes * VINEET JIMADOB:1955 (69 yo F)Acc No.[id number]:07/20/2024 Progress Note Patient: LARA DUVALL Provider: Heather Tejeda NP :1955 A ge:68 Y S ex:Female Date:07/20/2024 Address:[address] [place], [place] [id number] Pcp:VERONIKA LAWSON Subjective: * Chief Complaints: * K S/28/Cough and chest congestion/Doximity * Electronic signature of PARADISE TEJEDA NP on 05/11/2025 at 04:49 PM EST Sign off status: Pending * Provider: Heather Tejeda NP Date: 0 07/20/2024 Generated for Flori joseph/Roberto/Danelle on: 1 07/12/2024 04:49 PM EST
--- NOTE | 2025-05-11 12:56 | A.OFFVIS_ITS ---
Intake Visit Reasons: 6M/US Intake Note: Patient is present for 6M/US IMAGIN04/02/25 Urology Medication:NONE Antibiotic Allergy:NONE Blood Thinner:NONE Japanese Interpreter Required: No Allergies Codeine Phosphate Allergy (Unknown, Uncoded 05/11/25 13:13) Vomiting Medication List - Last Reconciled 05/11/25 by KAMALJIT Morales letrozole 2.5 mg PO DAILY lisinopril-hydrochlorothiazide 20-25 mg 1 tab PO DAILY lorazepam mg PO methimazole mg PO omeprazole 20 mg PO DAILY HPI Comments Details: Lorie is a 69-year-old female patient of Dr. Tucker was accompanied by her significant other at today's office visit. She has a past medical history of breast cancer status post lumpectomy at [facility] through Dr. CEDENO, vitamin- D deficiency, GERD, thyroid nodule, and hypertension. She is being followed up on today via video telehealth for her renal cyst. Most recent renal imaging results reviewed with the patient today. 03/20 no hydronephrosis or renal stones noted bilaterally. 1 cm cortical cyst in the lower pole of the right kidney. Additional irregular cystic focus in the lower pole of the right kidney may represent a focally dilated calyx or calyceal diverticulum versus peripelvic cysts. She does report noting a solitary episode of potential incontinence. She also reports noting episodes of urinary frequency however does feel she is managing these symptoms well independently. She otherwise denies urinary urgency, hematuria, dysuria, foul smelling urine, changes to urinary stream, flank pain, fever, and or chills. All questions were answered. She is happy with her current voiding parameters. She otherwise offers no other issues or concerns at this time. [facility] Medical History Breast cancer Vitamin D deficiency GERD (gastroesophageal reflux disease) Elevated prolactin level Thyroid nodule Hypertension Surgical History History of lumpectomy History of hysteroscopy History of section History of breast biopsy Review of Systems Const All systems reviewed & are unremarkable except as noted in HPI and below Physical Exam Const General: cooperative, healthy appearing, comfortable, no acute distress, well developed and alert Orientation/consciousness: patient oriented x3 Resp Effort & Inspection: normal respiratory effort and able to speak in complete sentences Neuro General: patient oriented x3 Psych Appearance: well kempt Mental Status: mental status grossly normal Speech and movement: Clear speech present Affect: normal affect Attitude: cooperative Thought process: Normal thought process present Insight: Fair insight present (Psych) Judgement: Fair judgement present (Psych) Telehealth Telehealth Telehealth Platform: Telephone Location of provider rendering services: practice address Location of patient: address on file Patient Identification confirmed using: Name, : Yes Telehealth method: video Patient verbally consented to treatment: Yes Patient verbally consented to billing insurance company: Yes Patient informed of any privacy concerns related to visit: Yes Minutes spent on Phone/Video with Pt.: 20 Assessment & Plan Assessment & Plan (1) Renal cyst: Code(s): N28.1 - Cyst of kidney, acquired Category: Medical (2) Stress incontinence: Code(s): N39.3 - Stress incontinence (female) (male) Category: Medical (3) H/O urinary frequency: Code(s): Z87.898 - Personal history of other specified conditions Category: Medical Plan Most recent renal imaging results reviewed with the patient today; as noted above. We did discuss potential causes of lower urinary tract symptoms she is experiencing as well as further treatment options and risks and benefits of these treatment options. We discussed renal cysts. Will continue with surveillance monitoring. She reports be happy with current voiding parameters. All questions were answered. Will obtain renal ultrasound in 1 year. Follow-up in 1 year with imaging; or sooner with any issues, concerns, and or questions. Orders: Orders US renal BI 1 Year N28.1 - Cyst of kidney, acquired Patient Instructions: The patient had an opportunity to ask questions regarding the treatment plan. All questions were answered. Physical exam, labs, and imaging were discussed and reviewed in detail. As well as risks, benefits, and discussion of treatment choices. No major barriers to understanding were identified. The patient expressed understanding and agreement with the above treatment plan. The patient was made aware they should contact our office by phone for worsening of their current condition, the appearance of new symptoms, or with any quest ions or concerns. Compliance is encouraged with any medications and follow up testing that is ordered. It is a privilege to be allowed the opportunity to participate in? your urological care.? Again, if you have any questions or concerns If you have any questions or concerns please do not hesitate to contact me. The office is [phone]. This note is constructed using voice recognition software. While every effort has been made to ensure accuracy storage receipt poster errors may have been included. Yours sincerely, ROGELIO Morales-JULIANO Coding Level of Care Code Tele Est Pt Level 3 (98632) Diagnoses Renal cyst N28.1 Stress incontinence N39.3 H/O urinary frequency Z87.898
--- OUTSIDE RECORDS SUMMARY | 2025-05-11 16:48 | XMS_ITS | Encounter Summary ---
Author Organization [facility] Address [address] [place] [address] Care Team Providers Care Customer Service Officer Name Role Phone Toan Tucker MD Primary Care Provider [phone] Oliva Spears MD Unavailable [phone] Encounter Details Date Type Department Care Team (Late st Contact Info) Description 05/04/2022 Orders Only [facility] Department of Obstetrics and Gynecology [address] [place] [address] Oliva Spears MD [address] [facility] [place] [address] Uterine leiomyoma, unspecified location (Primary Dx) Social [...] Care Team (Late st Contact Info) Description 01/13/2026 1:00 PM EDT Office Visit [facility] Department of Gastroenterology [address] [place] [address] Yasmine Colorado, TONGSMAN [address] [facility] [address] 02/16/2026 1:00 PM EDT Office Visit [facility] Department of Obstetrics and Gynecology [address] [place] [address] Oliva Spears MD [address] [facility] [place] [address] documented as of this encounter Visit Diagnoses Diagnosis Uterine leiomyoma, unspecified location- Primary documented in this encounter Care Teams Customer Service Officer Relationship Specialty Start Date End Date Tona Tucker MD [facility] [address] [place] [address],[facility] [address] [place] [address] PCP - General 07/24/17 Oliva Spears MD [address] [facility] OFFICE [place], [place] [phone] Obstetrics and Gynecology 04/27/21 documented as of this encounter
--- OUTSIDE RECORDS SUMMARY | 2025-05-11 16:48 | XMS_ITS | Encounter Summary ---
Author Organization [facility] Address [address] [place] [address] Phone Care Team Providers Care Seasonal Recruiter Name Role Phone Toan Tucker MD Primary Care Provider [phone] Qi Covington MD Unavailable [phone] Oliva Spears MD Unavailable Ban Pitt MD Unavailable [phone] Encounter Details Date Type Department Care Team (Late st Contact Info) Description 01/23/[address] [facility] [address] [place] [address] Social History Tobacco Use Types Packs/Day Years Used Date Smoking Tobacco: Former Cigarettes Smokeless Tobacco: Never Alcohol Use Standard Drinks/Week Comments Not Currently 0 (1 standard drink = 0.6 oz pur e alcohol) Child or Family Care Answer Date Record ed Do you have problems with on e of the following making it difficult for you to work, study, or receive health care? No 01/15/2023 Education Answer Date Recorded Are you interested in more education? Not on ez e 09/22/2022 Are you concerned about learning? Not on file 09/22/2022 No 09/22/2022 No 09/22/2022 Food Answer Date Recorded Within the past 6 months we worried whether our food would run out before we got money to buy more. Never True 01/15/2023 Within the past 6 months the food we bought just didn't last and we didn't have enough money to get more. Never True Residential Stability Answer Date Recor ded What is your housing situation today? I have anna arthur 01/15/2023 How many times have you move d in the past 12 months? Zero (I did not move) 01/15/2023 Paying for Meds Answer Date Recorded Do you have trouble paying for medicines? I damian se not to answer 01/15/2023 Paying Utility Bills Answer Date Record ed Do you have trouble paying your heating or elect ricity bill? No 01/15/2023 Transportation Answer Date Recorded Has the lack of transportati on kept you from medical appointments or from getting medications? I choose not to answer 01/15/2023 Digital Access Answer Date Recorded No 10/23/2022 No 10/23/2022 Reliable internet access at home? Not on file 10/23/2022 Device with a working camera? Not on file Intimate Partner Violence Answer Date R ecorded Are you denied basic needs s uch as food, clothing, or medical care? No 01/23/2023 In the past 12 months have y ou been in a relationship with a person who hurts, threatens, or tries to control you? No 01/23/2023 Are you denied basic needs s uch as food, clothing, or medical care? No 01/23/2023 In the past 12 months have y ou been in a relationship with a person who hurts, threatens, or tries to control you? No 01/23/2023 Comments No Sex and Gender Information Value Date Recorded Sex Assigned at Female 03/23/2022 2:02 PM EDT Legal Sex Female 1:57 PM EDT Gender Identity Female 03/23/2022 2:02 PM EDT Sexual Orientation Straight 03/23/2022 2: 02 PM EDT documented as of this encounter Plan of Treatment Upcoming Encounters Date Type Department Care Team (Late st Contact Info) Description 01/12/2025 Procedure Pass [facility] [address] [facility] [address] [place] [address] 01/18/2025 Procedure Pass [facility] MRI [address] [facility] 4th [place] [address] 08/16/2025 9:55 AM EDT Appointment [facility], [facility] [address] [address] Cindy Cardona PA-C [address] [place] [address] [email or web address] Watkins MD [address] [place] [address] [email or web address] 08/16/2025 11:30 AM EDT Office Visit [facility], [facility], [facility] [address] [address] Ward Watkins MD [address] [place] [id number] [email or web address] 12/31/2025 10:30 AM EDT Office Visit [facility] [address] [facility] [place] [address] Lynette Licea, PARKING METER COLLECTOR [address] [facility] [address] [place] [address] [email or web address] 12/31/2025 11:40 AM EDT Appointment [facility] [address] [facility] [address] [place] [address] Lynette Licea, PARKING METER COLLECTOR [address] [facility] [address] [place] [address] [email or web address] 06/02/2026 2:20 PM EST Office Visit [facility] [address] [facility] 1st [place] [address] Panda Recinos MD [address] [place] [address] [email or web address] documented as of this encounter Visit Diagnoses Not on filedocumented in this encounter Care Teams Seasonal Recruiter Relationship Specialty Start Date End Date Toan Tucker MD [address] [facility] [address] [place] [address] [email or web address] PCP - General Internal Medicine 03/23/22 Qi Covington MD [address] [facility] [address] [place] [address] [email or web address] Radiation Oncology 02/15/23 Oliva Spears MD 800 [facility] [place] [facility] [place] [address] Obstetrics and Gynecology 08/05/23 Ban Pitt MD [address] [facility] [address] [place] [address] [email or web address] Surgical Oncology 08/05/23 documented as of this encounter Additional Source Comments The information contained in this document represents components of the legal health record. It is not the complete legal health record.[email or web address]
--- OUTSIDE RECORDS SUMMARY | 2025-05-11 16:48 | XMS_ITS | Clinical Summary ---
Author Organization [facility] Address [facility] [email or web address] [facility] [address] [place] [phone] Phone Care Team Providers Care Construction Worker Name Role Phone Toan Tucker MD Primary Care Provider [phone] Qi Covington MD Unavailable [phone] Oliva Spears MD Unavailable Ban Pitt MD Unavailable Allergies Active Allergy Reactions Criticality Noted Date Comments Codeine Nausea Only,GI Upset Low 02/15/2015 Latex Rash Low 04/01/2025 Medications methIMAzole (TAPAZOLE) 5 MG tablet 01/14/2023 Active LORazepam (ATIVAN) 0.5 MG tablet 01/13/2023 Active lisinopril-hydro CHLOROthiazide (PRINZIDE,ZESTOR ETIC) 20-25 mg per tablet Take 1 tablet by mouth every morning. 12/20/2022 Active cholecalciferol, vitamin D3, 25 mcg (1,000 unit) capsule Take by mouth. Active letrozole (FEMARA) 2.5 mg tablet Take 1 tablet (2.5 mg total) by mouth daily. 90 tablet 3 01/18/2025 Active omeprazole (PRILOSEC) 20 MG tablet Take 20 mg by mouth daily. Active Active Problems Problem Noted Date Diagnosed Date Non-toxic nodular goiter 01/18/2023 023 Class 1 obesity 01/18/2023 01/18/2023 Malignant neoplasm of upper- outer quadrant of left breast in female, estrogen receptor positive 01/08/2023 Heartburn 12/06/2022 01/18/2023 Overview (01/18/2023): Last Assessment & Plan: - Reviewed lifestyle modifications including antireflux diet, identifying/avoiding personal triggers, not eating 3 hrs before bedtime, weight loss, eating smaller/more frequent meals (4-6/day) - Discussed importance of controlling heartburn/reflux for prevention of Bright's esophagus, which is considered precancerous - Advised to contact GI clinic if persists or worsens Hypertensive disorder Encounters Date Type Department Care Team Description 04/01/2025 2:00 PM EST Office Visit [facility] Eye [facility] Ear Comprehensive Ophthalmology Service [address] [place] [address] Panda Recinos MD Nuclear sclerotic cataract of both eyes (Primary Dx); Posterior vitreous detachment of both eyes from Last 3 Months Family History Medical History Relation Comments Breast cancer Daughter Cataracts Mother Breast cancer Sister Relation Status Comments Daughter Alive Mother Sister Social History Tobacco Use Types Packs/Day Years Used Date Smoking Tobacco: Former Cigarettes Smokeless Tobacco: Never Tobacco Cessation:Counseling Given: Not Answered Alcohol Use Standard Drinks/Week Comments Not Currently [...] your housing situation today? I have anna sing 01/15/2023 How many times have you move [...] Orientation Straight 03/23/2022 2: 02 PM EDT Last Filed Vital Signs Vital Sign Reading Time Taken Comments Blood Pressure 126/60 01/18/2025 10:59 AM EDT Pulse 87 01/18/2025 10:59 AM EDT Temperature 36.8 C (98.2 F) 01/18/2025 10:59 AM EDT Respiratory Rate 16 01/18/2025 10:5 9 AM EDT Oxygen Saturation 97% 01/18/2025 10: 59 AM EDT Inhaled Oxygen Concentration - - Weight 80.7 kg (177 lb 14.6 oz) 025 10:59 AM EDT Height 147.8 cm (4' 10.19 ) 01/18/2025 10:59 AM EDT Body Mass Index 36.94 01/18/2025 10:59 AM EDT Plan of Treatment Upcoming Encounters Date Type Department Care Team (Late st Contact Info) Description 01/12/2025 Procedure Pass [facility] Breast Evaluation Center [address] [facility] [address] [place] [address] 01/18/2025 Procedure Pass [facility], [facility] [address] [address] 08/16/2025 9:55 AM EDT Appointment [facility], [facility] [address] [address] Cindy Cardona PA-C [address] [place] [address] [email or web address] Ward Watkins MD [address] [place] [id number] [email or web address] 08/16/2025 11:30 AM EDT Office Visit [facility], [facility], [facility] [address] [address] Ward Watkins MD [address] [place] [phone] [email or web address] 12/31/2025 10:30 AM EDT [facility] [address] [facility], [address] [place] [address] Lynette Licea, [facility] [address] [facility] [address] [place] [address] [email or web address] 12/31/2025 11:40 AM EDT Appointment [facility] Breast Evaluation Center [address] [facility] [address] [place] [address] Lynette Licea, APARTMENT LEASING AGENT [address] [facility] [address] [place] [address] [email or web address] 06/02/2026 2:20 PM EST Office Visit [facility] Eye and Ear Comprehensive Ophthalmology Service [address] [facility] 1st [place] [address] Panda Recinos MD [address] [place] [address] [email or web address] Health Maintenance Due Date Last Done Comments LIPID PANEL 1955 POTASSIUM LEVEL 1955 DEPRESSION SCREENING 1967 SMOKING Hx and SMOKELESS TOBACCO SCREENING 10/26/1968 PNEUMOCOCCAL VACCINES (50+ years) (1 of 2 - PCV) 10/26/1974 SCREENING FOR DIABETES 10/26/1990 COLOGUARD 10/26/2000 COLONOSCOPY 10/26/2000 FOBT 10/26/2000 SIGMOIDOSCOPY 10/26/2000 VIRTUAL COLONOSCOPY 10/26/2000 INFLUENZA VACCINE (#1) 2024 03/25/2022, 2020 CREATININE LEVEL 01/24/2025 01/25/2024 COVID-19 VACCINE ( - season) 2025 12/08/2021 BLOOD PRESSURE 07/21/2025 01/18/2025 COLORECTAL CANCER SCREENING 07/30/2025 FIT TEST 07/30/2025 07/30/2024 MAMMOGRAM 12/24/2026 12/24/2024, 07/25, 12/19/2023, Additional history exists RSV VACCINE (1 - 1-dose 75+ series) 10/26/2030 Adult Td,Tdap Booster 04/15/2033 04/15/2023 ZOSTER VACCINES Completed 12/28/2023, 08/22/2023 HEPATITIS C SCREENING Completed 09/09/2024 OSTEOPOROSIS SCREENING INITIAL (ONE-TIME) Completed 01/18/2025, 01/17/2023, 01/16/2023 HEPATITIS A VACCINES Aged Out No long er eligible based on patient's age to complete this topic HIB VACCINES Aged Out No longer eligi ble based on patient's age to complete this topic MENINGOCOCCAL VACCINES (ACWY) Aged Out No longer eligible based on patient's age to complete this topic MENINGOCOCCAL VACCINES (B) Aged Out N o longer eligible based on patient's age to complete this topic Medical Devices Implanted Type Area Hot Stick Man Device Identifier Shelf Expiration Date Model / Serial / Lot Clip Clip Bilateral: Breast Procedures Procedure Name Priority Date/Time Associated Diagnosis Comments BD DXA AXIAL (SPINE) WITH HIP Routine 01/18/2025 9:19 AM EDT Aromatase inhibitor use BI MAMMOGRAM SCREENING WITH TOMOSYNTHESIS WITH CAD (BILATERAL) Routine 12/24/2024 1:07 PM EDT Visit for screening mammogram from Last 3 Months or Most Recently Relevant to Health Maintenance Results * BD DXA AXIAL (SPINE) WITH HIP (01/18/2025 9:19 AM EDT) Anatomical Region Laterality Modality Bone Density Bone Density 01/18/2025 9:15 AM EDT Impressions 01/18/2025 9:47 AM EDT Interpretation: Osteopenia. Narrative 01/18/2025 9:47 AM EDT Referred By: EL ANTOINE Indications: Long-Term Treatment with Aromatase inhibitors Scanner: Garden Mate A with serial# of [id number] located at [facility] Bone Density Scan (DXA) 01/18/25 Details of prior DXA scans are available by clicking View Full Report BMD T- Z- Skeletal Site gm/cm2 score score BMD Change Since Prior Scan ------ ----- ----- PA Spine (L2 L3) 0.955 -0.90 1.10 N/A Total Hip (Left) 0.899 -0.40 1.10 N/A Femoral Neck (Left) 0.664 -1.70 0.10 N/A ------ ----- ----- * Denotes significant change when >= 0.022 g/cm2 for the spine, 0.027 g/cm2 for the total hip, 0.029 g/cm2 for the femoral neck. Interpretation: Osteopenia. Technical Quality: Imaging of all sites was of adequate quality.Because only two vertebrae are measurable, interpret PA spine results with caution; serial changes may be more variable than usual. FRAX: Based on FRAX(r) 3.6 ([place] White female), this patient's likelihood of hip fracture is 1.2% and major osteoporotic fracture is 9% over the next 10 years. The patient reported no risks of fracture. Reviewed By: Alise Infante on 01/18/2025 09:47:57 Additional Information: -World Health Organization criteria classify adults based on lowest T-score at PA spine, hip or forearm: Normal (T-score >= -1.0), Osteopenia (T-score between -1 and -2.5), or Osteoporosis (T-score <= -2.5). At [facility], T-scores are compared to peak bone density of a young white gender matched reference population. - For premenopausal women and men under the age of 50, Z-scores (comparison to age, gender, and ethnicity matched reference population) are used: Above expected range for age (Z-score >= 2.0), Within expected range of age (Z-score 1.9 to -1.9), or Below expected range for age (Z-score <= -2.0). - The Bone Health and Osteoporosis Foundation recommends that treatment be considered in men aged more than 50 years and in postmenopausal women with ANY of the following: Prior hip or vertebral fractures; T-score of <= -2.5 at the PA spine or hip; or 10 year fracture probability by FRAX of >= 3% for the hip or >= 20% for major osteoporotic fracture. - The FRAX algorithm (https://www.charu.ac.uk/FRAX/tool.aspx) is designed to predict 10-year fracture risk in treatment-naive adults between the ages of 40 and 90. It is not intended to be used in those receiving pharmacologic osteoporosis treatment. - The TBS is derived from the texture of the DXA spine image and has been shown to be related to bone microarchitecture and fracture risk. This data provides information independent of BMD value. It adds to fracture risk assessment with a FRAX adjusted for TBS score. If your patient had a TBS and qualified for a FRAX score, the reported FRAX score has been adjusted for TBS. TBS Score Interpretation 1.350 and greater Normal bone microarchitecture 1.200 to 1.350 Partially degraded bone microarchitecture 1.200 and less Degraded bone microarchitecture - Including race/ethnicity in the generation of T- or Z-scores or in the FRAX calculation is complicated, and currently undergoing active review to ensure that we can give patients the best information on their risk of fracture. - Click on View Full Report to see subsequent pages with images and prior bone density results. Procedure Note Alise Infante MD - 01/18/2025 Referred By: EL ANTOINE Indications: Long-Term Treatment with Aromatase inhibitors Scanner: Garden Mate A with serial# of [id number] located at [facility] Bone Density Scan (DXA) 01/18/25 Details of prior DXA scans are available by clicking View Full Report BMD T- Z- Skeletal Site gm/cm2 score score BMD Change Since Prior Scan ------ ----- PA Spine (L2 L3) 0.955 -0.90 1.10 N/A Total Hip (Left) 0.899 -0.40 1.10 N/A Femoral Neck (Left) 0.664 -1.70 0.10 N/A ------ ----- * Denotes significant change when >= 0.022 g/cm2 for the spine, 0.027g/cm2 for the total hip, 0.029 g/cm2 for the femoral neck. Interpretation: Osteopenia. Technical Quality: Imaging of all sites was of adequate quality.Becauseonly two vertebrae are measurable, interpret PA spine results with caution; serial changes may be more variable than usual. FRAX: Based on FRAX(r) 3.6 ([place] White female), this patient's likelihoodof hip fracture is 1.2% and major osteoporotic fracture is 9% over the next10 years. The patient reported no risks of fracture. Reviewed By: Alise Infante on 01/18/2025 09:47:57 Additional Information: -World Health Organization criteria classify adults based on lowestT-score at PA spine, hip or forearm: Normal (T-score >= -1.0), Osteopenia (T-score between -1 and -2.5), or Osteoporosis (T-score <= -2.5). At [facility], T-scores are compared to peak bonedensity of a young white gender matched reference population. - For premenopausal women and men under the age of 50, Z-scores(comparison to age, gender, and ethnicity matched reference population) are used:Above expected range for age (Z-score >= 2.0), Within expected range of age (Z-score 1.9 to -1.9), or Below expected range for age (Z-score <= -2.0). - The Bone Health and Osteoporosis Foundation recommends that treatment be considered in men aged more than 50 years and in postmenopausal women with ANY of the following: Prior hip or vertebral fractures; T-score of <= -2.5 at the PA spine or hip; or 10 year fracture probability by FRAX of >= 3%for the hip or >= 20% for major osteoporotic fracture. - The FRAX algorithm (https://www.charu.ac.uk/FRAX/tool.aspx) is designed to predict 10-year fracture risk in treatment-naive adultsbetween the ages of 40 and 90. It is not intended to be used in those receiving pharmacologic osteoporosis treatment. - The TBS is derived from the texture of the DXA spine image and has been shown to be related to bone microarchitecture and fracture risk. This data provides information independent of BMD value. It adds to fracture risk assessment with a FRAX adjusted for TBS score. If your patient had a TBSand qualified for a FRAX score, the reported FRAX score has been adjusted for TBS. TBS Score Interpretation 1.350 and greater Normal bone microarchitecture 1.200 to 1.350 Partially degraded bone microarchitecture 1.200 and less Degraded bone microarchitecture - Including race/ethnicity in the generation of T- or Z-scores or in the FRAX calculation is complicated, and currently undergoing active review to ensure that we can give patients the best information on their risk of fracture. - Click on View Full Report to see subsequent pages with images andprior bone density results. IMPRESSION: Interpretation: Osteopenia. El Antoine PNEUMATIC HOIST OPERATOR IMG BD BONE DENSITY DEXA Fin al Result * (ABNORMAL) BI MAMMOGRAM SCREENING WITH TOMOSYNTHESIS WITH CAD (BILATERAL) (12/24/2024 1:07 PM EDT) Anatomical Region Laterality Modality Breast Left, Breast Right, Breast Bilateral Bila teral Mammography 12/24/2024 1:33 PM EDT Impressions 12/24/2024 1:34 PM EDT 1. Focal asymmetry in the right breast for which additional imaging is recommended. 2. No mammographic evidence of malignancy in the left breast. BI-RADS 0 INCOMPLETE Needs additional imaging evaluation The patient will be notified of the results and recommendations. The mammography department will contact the patient to arrange for the additional imaging. Narrative 12/24/2024 1:34 PM EDT BI MAMMOGRAM SCREENING WITH TOMOSYNTHESIS WITH CAD (BILATERAL) Additional patient information: Screening. COMPARISON: Comparison is made with relevant prior imaging. Breast composition: There are scattered areas of fibroglandular density. FINDINGS: Right A focal asymmetry is present in the upper outer right breast at middle depth. Left Post-treatment changes are present in the left breast. No abnormal masses, suspicious calcifications, or other significant findings are identified mammographically in the left breast. Procedure Note Mary Carmen Noyola MD - 12/24/2024 BI MAMMOGRAM SCREENING WITH TOMOSYNTHESIS WITH CAD (BILATERAL) Additional patient information: Screening. COMPARISON: Comparison is made with relevant prior imaging. Breast composition: There are scattered areas of fibroglandular density. FINDINGS: Right A focal asymmetry is present in the upper outer right breast at middledepth. Left Post-treatment changes are present in the left breast. No abnormal masses, suspicious calcifications, or other significantfindings are identified mammographically in the left breast. IMPRESSION: 1. Focal asymmetry in the right breast for which additional imaging isrecommended. 2. No mammographic evidence of malignancy in the left breast. BI-RADS 0 INCOMPLETE Needs additional imaging evaluation The patient will be notified of the results and recommendations. Themammography department will contact the patient to arrange for theadditional imaging. Lynette Licea [facility] IMG MG EXAMS Final Re sult from Last 3 Months or Most Recently Relevant to Health Maintenance Insurance MEDICARE PART A & B [facility] MEDICARE PART A & B [facility] MEDICARE PART A & B [id number] [place] [address] MEDICARE PART A & B [facility] MEDICARE PART A & B [facility] MEDICARE PART A & B [facility] MEDICARE PART A & B [facility] MEDICARE PART A & B [facility] MEDICARE PART A & B [facility] [employer] Care Teams Construction Worker Relationship Specialty Start Date End Date Toan Tucker MD [address] [place] [phone] [email or web address] PCP - General Internal Medicine 03/23/22 Qi Covington MD [address] [facility] [address] [place] [address] [email or web address] Radiation Oncology 02/15/23 Oliva Spears MD [address] [facility] [place] [address] Obstetrics and Gynecology 08/05/23 Ban Pitt MD [address] [facility] [address] [place] [address] [email or web address] Surgical Oncology 08/05/23 Additional Source Comments The information contained in this document represents components of the legal health record. It is not the complete legal health record.[facility]
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
--- OUTSIDE RECORDS SUMMARY | 2025-05-11 16:49 | XMS_ITS | Encounter Summary ---
Author Organization [facility] Address [address] [employer] [facility] [address] [place] [address] Phone Care Team Providers Care Pneumatic System Conveyor Operator Name Role Phone Toan Tucker MD Primary Care Provider Qi Covington MD Unavailable [phone] Oliva Spears MD Unavailable Ban Pitt MD Unavailable [phone] Encounter Details Date Type Department Care Team (Late st Contact Info) Description 01/08/2023 [facility] [address] [place] [address] Ban Pitt MD [address] [address] [email or web address] Social History Tobacco Use Types Packs/Day Years Used Date Smoking Tobacco: Never Assessed Education Answer Date Recorded Are you interested in more education? Not on ez e 09/22/2022 Are you concerned about learning? Not on file 09/22/2022 No 09/22/2022 No 09/22/2022 Digital Access Answer Date Recorded No 10/23/2022 No 10/23/2022 Reliable internet access at home? Not on file 10/23/2022 Device with a working camera? Not on file Comments Unknown Sex and Gender Information Value [...] [facility] [address] [facility] [address] [place] [address] 01/18/2025 Procedure Pass [facility], MRI [address] [address] 08/16/2025 9:55 AM EDT Appointment [facility], [facility] [address] [address] Cindy Cardona PA-C [address] [place] [address] [email or web address] Ward Watkins MD [address] [place] [phone] [email or web address] 08/16/2025 11:30 AM EDT Office Visit [facility], [facility], [facility] [address] [address] Ward Watkins MD [address] [address] [email or web address] 12/31/2025 10:30 AM EDT Office Visit [facility] Cancer [place] [facility] [address] [facility], [address] [place] [address] Lynette Licea, [facility] [address] [facility] [address] [place] [address] [email or web address] 12/31/2025 11:40 AM EDT Appointment [facility] [address] [facility] [address] [place] [address] Lynette Licea, PHARMACIST CRITICAL CARE [address] [facility] [address] [place] [address] [email or web address] 06/02/2026 2:20 PM EST Office Visit [facility] [address] [place] [address] Panda Recinos MD [address] [place] [address] [email or web address] documented as of this encounter Visit Diagnoses Not on filedocumented in this encounter Care Teams Pneumatic System Conveyor Operator Relationship Specialty Start Date End Date Toan Tucker MD [address] [place] [address] [address] [place] [address] [email or web address] PCP - General Internal Medicine 03/23/22 Qi Covington MD [address] [facility] [address] [place] [address] [email or web address] Radiation Oncology 02/15/23 Oliva Spears MD [address] [facility] [address] Obstetrics and Gynecology 08/05/23 Ban Pitt MD [address] [facility] [address] [place] [address] [email or web address] Surgical Oncology 08/05/23 documented as of this encounter Additional Source Comments The information contained in this document represents components of the legal health record. It is not the complete legal health record.[facility]
--- OUTSIDE RECORDS SUMMARY | 2025-05-11 16:49 | XMS_ITS | Encounter Summary ---
Author Organization [facility] Address [address] [facility] [address] [place] [address] Phone Care Team Providers Care Slab Lifting Supervisor Name Role Phone Toan Tucker MD Primary Care Provider [phone] Qi Covington MD Unavailable [phone] Oliva Spears MD Unavailable Ban Pitt MD Unavailable [phone] Encounter Details Date Type Department Care Team (Late st Contact Info) Description 12/25/2024 Procedure Pass [facility] [address] [place] [address] Social History Tobacco Use Types Packs/Day Years [...] st Contact Info) Description 01/12/2025 Procedure Pass [facility] [address] [place] [address] 01/18/2025 Procedure Pass [facility], MRI [address] [facility] 4th [place] [address] 08/16/2025 9:55 AM EDT Appointment [facility], [facility] [address] [address] Cindy Cardona PA-C 450 [place] [address] [email or web address] Ward Watkins MD [address] [address] [email or web address] 08/16/2025 11:30 AM EDT Office Visit [facility], [facility], [facility] [address] [address] Ward Watkins MD [address] [address] [email or web address] 12/31/2025 10:30 AM EDT Office Visit [facility] Comprehensive Breast Evaluation Center [address], [address] [place] [address] Lynette Licea, RESEARCH ENGINEER [employer]INE [employer]MENT 32 [facility] [address] [place] [address] [email or web address] 12/31/2025 11:40 AM EDT Appointment [facility] [address] [place] [address] Lynette Licea, RESEARCH ENGINEER [employer] [address] [place] [facility] [address] [place] [address] [email or web address] 06/02/2026 2:20 PM EST Office Visit [facility] Eye and Ear Comprehensive Ophthalmology Service [address] [place] [address] Panda Recinos MD 243 [place] [address] [email or web address] documented as of this encounter Visit Diagnoses Not on filedocumented in this encounter Care Teams Slab Lifting Supervisor Relationship Specialty Start Date End Date Toan Tucker MD 701 [facility] 100 [place] [address] [email or web address] PCP - General Internal Medicine 03/23/22 Qi Covington MD 32 [facility] [address] [place] [address] [email or web address] Radiation Oncology 02/15/23 Oliva Spears MD 800 [facility] [address] Obstetrics and Gynecology 08/05/23 Ban Pitt MD 55 [facility] [address] [place] [address] [email or web address] Surgical Oncology 08/05/23 documented as of this encounter Additional Source Comments The information contained in this document represents components of the legal health record. It is not the complete legal health record.[facility]
--- OUTSIDE RECORDS SUMMARY | 2025-05-11 16:49 | XMS_ITS | Patient Health Record ---
Author Organization [facility] Address [address] [place] [address] Care Team Providers Care Plant Breeder Scientist Name Role Phone VERONIKA LAWSON Primary Care Provider PARADISE TEJEDA Unavailable [phone] Allergies Allergen (clinical drug ingredient) Drug/Non Drug Allergy documented on EMR Reaction Allergy Type Onset Date Status codeine Codeine vomiting Drug Allergy Active Reason For Referral Reason ongoing frequent uri nation Referral Organization [facility] Referring Provider First Name VERONIKA Referring Provider Last Name RO Referring Provider Speciality Internal M edicine Referred Provider ANAI CALERO General Notes Radha CHERRY [place] 06/2024 09:19:17 PM > disregard; see 06/2024 referral Referral Priority Routine Reason ?renal cyst that is increasing Referral Organization [facility] Referring Provider First Name VERONIKA Referring Provider Last Name LULU Referring Provider Speciality Internal edicine Referred Provider IRWIN ROJO Referred Provider Specialty Urology General Notes Radha CHERRY [place] 07/2024 11:06:25 AM > all necessary info has been faxed to office, Radha CHERRY [place] 09/02/2024 03:22:51 PM > call to office and informed pt is scheduled with Deandra Fernandez on 09/21 at 2pm. Referral Priority Routine Referral Appointment Date 09/21/2024 Medications Medication SIG (Take, Route, Frequency, Duration) Notes Start Date End Date Status Vitamin D3 25 MCG (1000 UT) Capsule 1 orally daily Active Lisinopril-hydroCHLOROthiaz aryan 20-25 MG Tablet TAKE 1 TABLET BY MOUTH EVERY DAY; Duration: 90 Active methIMAzole 5 MG Tablet 1/2 tablet Orall y Once a day Active Letrozole 2.5 MG Tablet 1 tablet Orally Once a day; Duration: 30 day(s) Active LORazepam 0.5 MG Tablet 1 tab(s) orally daily prn 07/16/2024 Active Immunizations Vaccine Route Administration Date Status Comme nts Zoster recombinant IM Intramuscular 12/28/2023 Administered Tdap (Adacel) IM Intramuscular 01/14/2013 Administered Influenza, Fluzone Quad IM Intramuscular 04/05/2023 Administered Pt request regu lar dose, refuse HD Influenza, Flublok IM Intramuscular 05/03/2021 Administered Influenza Vaccine[158] IM Intramuscular 04/04/2018 Administered Influenza Quad Preservative Free - Sanofi Pasteur Influenza IM Intramuscular 03/29/2025 Administered [facility] Afluria Quad IM Intramuscular 02/18/2020 Administered Social History Tobacco Use: Social History Observation Description Date Details (start date - stop date) Former Smoker NA - NA Social History Tobacco Use: Social Info Question Answer Notes Smoking Are you a: former smoker Additional Details Category Social Info Options Details General Occupation: Retired asbestos exposure: no Past year's travels: none alcohol use: no drug use: no Coffee/Tea/Soda: yes 1-2 coffee/alex h, occ tea, 1 soda Marital Status experience no Living with Pets none smokers in household no Section Notes: h/o 1/2 ppd x 2-3 years; jay t in 20's h/o 1/2 ppd x 2-3 years; jay t in 20's h/o 1/2 ppd x 2-3 years; jay t in 20's h/o 1/2 ppd x 2-3 years; jay t in 20's h/o 1/2 ppd x 2-3 years; jay t in 20's h/o 1/2 ppd x 2-3 years; jay t in 20's h/o 1/2 ppd x 2-3 years; jay t in 20's h/o 1/2 ppd x 2-3 years; jay t in 20's h/o 1/2 ppd x 2-3 years; jay t in 20's h/o 1/2 ppd x 2-3 years; jay t in 20's h/o 1/2 ppd x 2-3 years; jay t in 20's h/o 1/2 ppd x 2-3 years; jay t in 20's h/o 1/2 ppd x 2-3 years; jay t in 20's h/o 1/2 ppd x 2-3 years; jay t in 20's h/o 1/2 ppd x 2-3 years; jay t in 20's h/o 1/2 ppd x 2-3 years; jay t in 20's h/o 1/2 ppd x 2-3 years; jay t in 20's h/o 1/2 ppd x 2-3 years; jay t in 20's h/o 1/2 ppd x 2-3 years; jay t in 20's h/o 1/2 ppd x 2-3 years; jay t in 20's h/o 1/2 ppd x 2-3 years; jay t in 20's h/o 1/2 ppd x 2-3 years; jay t in 20's h/o 1/2 ppd x 2-3 years; jay t in 20's h/o 1/2 ppd x 2-3 years; jay t in 20's h/o 1/2 ppd x 2-3 years; jay t in 20's h/o 1/2 ppd x 2-3 years; jay t in 20's h/o 1/2 ppd x 2-3 years; jay t in 20's h/o 1/2 ppd x 2-3 years; jay t in 20's Problems Problem Type SNOMED Code ICD Code Onset Dates Problem Status W/U Status Risk Notes Problem Thyroid nodule (567411255) Thyroid nodule (241.0) Active confirmed Problem Cerumen (22533869) Cerumen (380.4) Active confi rmed Problem Essential hypertension (99402599) HTN [Hypertension] (401.9) Active confirmed Problem Gastroesophageal reflux disease (disorder) (315081433) GERD [Gastroesophageal reflux disease] (530.81) Active confirmed Problem Left upper quadrant pain (508826718) Abdominal pain, left upper quadrant (789.02) Active confirmed Problem Hypercholesterolemia (90418705) Hypercholesterolemia (272.0) Active confirmed Problem General examination of patient (536999122) ROUTINE MEDICAL EXAM (V70.0) Active confirmed Problem Preoperative diagnosis (998217621) PREOP EXAM UNSPCF (V72.84) Active confirmed Problem Chest pain (66711277) CHEST PAIN NOS (786.50) Active confirmed Problem Abnormal mammogram (065750127) Abnormal MAMMOGRAM NOS (793.80) Active confirmed Problem Vitamin D deficiency (98095351) Vitamin D deficiency (E55.9) Active confirmed Problem Gastroesophageal reflux disease (151399404) GERD (gastroesophageal reflux disease) (K21.9) Active confirmed Problem Hypercholesterolemia (41757702) Hypercholesterolemia (E78.0) Active confirmed Problem Essential hypertension (09488090) HTN (hypertension), benign (I10) Active confirmed Problem Essential hypertension (55205281) Essential (primary) hypertension (I10) Active confirmed Problem Pulmonary nodule (575304862) Pulmonary nodule (R91.1) Active confirmed Problem Hyperthyroidism (51137599) Hyperthyroidism (E05.90) Active confirmed Problem Thyroid nodule (008598204) Thyroid nodule (E04.1) Active confirmed Problem Abnormal mammogram (310609746) Abnormal mammogram (R92.8) Active confirmed Problem Hypercalcemia (65283341) Hypercalcemia (E83.52) Active confirmed Problem Anxiety (81390118) Anxiety (F41.9) Active confi rmed Problem Impacted cerumen (85828139) Bilateral impacted cerumen (H61.23) Active confirmed Problem Pure hypercholesterolemia (241355311) Elevated cholesterol (E78.00) Active confirmed Problem Headache (69389625) Nonintractab le episodic headache, unspecified headache type (R51) Active confirmed Problem Malignant neoplasm o f female breast (511158788) Malignant neoplasm of left female breast, unspecified estrogen receptor status, unspecified site of breast (C50.912) Active confirmed Problem Sensory disorder of smell and/or taste (4520182273021) Bloody taste in mouth (R43.8) Active confirmed Vital Signs Blood pressure diastolic 70 mm Hg 11/12/2024 Height 57.5 in 11/12/2024 Blood pressure systolic 120 mm Hg 11/12/2024 Weight 177.6 lbs 11/12/2024 BMI 37.76 kg/m2 11/12/2024 Encounters Encounter Location Date Provider Diagnosis [place] [phone] 05/14/2024 VERONIKA LAWSON UTI (lower urinary t ract infection) N39.0 ; HTN (hypertension), benign I10 ; Anxiety F41.9 ; Vitamin D deficiency E55.9 ; Hyperthyroidism E05.90 ; Malignant neoplasm of left female breast, unspecified estrogen receptor status, unspecified site of breast C50.912 ; Elevated cholesterol E78.00 ; Dyspnea on exertion R06.09 ; Heartburn R12 ; Bloody taste in mouth R43.8 ; Hyperglycemia R73.9 ; Thyroid nodule E04.1 ; Hypercalcemia E83.52 ; Low TSH level R79.89 ; Tremor R25.1 and Snoring R06.83 [place] [address] 05/14/2024 VERONIKA LAWSON Medicare annual well ness visit, subsequent Z00.00 [place] [address] 07/16/2024 VERONIKA LAWSON Renal cyst, right N2 8.1 and Anxiety F41.9 [place] [address] 07/20/2024 VERONIKA LAWSON Persistent cough R05 .3 [place] [address] 11/12/2024 VERONIKA LAWSON Persistent cough R05 .3 ; HTN (hypertension), benign I10 ; Renal cyst, right N28.1 ; Anxiety F41.9 ; Vitamin D deficiency E55.9 ; Hyperthyroidism E05.90 ; Malignant neoplasm of left female breast, unspecified estrogen receptor status, unspecified site of breast C50.912 ; Elevated cholesterol E78.00 ; Dyspnea on exertion R06.09 ; Heartburn R12 ; Hyperglycemia R73.9 ; Thyroid nodule E04.1 ; Hypercalcemia E83.52 ; Low TSH level R79.89 ; Tremor R25.1 ; Snoring R06.83 and Pulmonary nodule R91.1 [place] [id number] 05/14/2024 VERONIKA LAWSON [place] [id number] 06/30/2024 VERONIKA LAWSON [place] [id number] 07/16/2024 VERONIKA LAWSON [facility] [address] [facility] [place] [address] 07/16/2024 VERONIKA LAWSON [facility] [address] [facility] [place] [address] 07/20/2024 VERONIKA LAWSON [facility] [address] [facility] [place] [address] 07/28/2024 VERONIKA LAWSON Acute cough R05.1 [facility] [address] [place] [address], [place] [address] 07/29/2024 VERONIKA LAWSON Persistent cough R05 .3 and Right middle lobe pulmonary infiltrate R91.8 [facility] [address] [place] [address], [place] [address] 07/31/2024 VERONIKA LAWSON [facility] [address] [place] [address], [place] [address] 08/17/2024 VERONIKA LAWSON [facility] [address] [place] [address], [place] [address] 08/18/2024 VERONIKA LAWSON [facility] [address] [place] [address], [place] [address] 11/13/2024 VERONIKA LAWSON Alkaline phosphatase elevation R74.8 and High calcium levels E83.52 [facility] [address] [place] [address], [place] [address] 12/01/2024 VERONIKA LAWSON [facility] [address] [place] [address], [place] [address] 12/02/2024 VERONIKA LAWSON [address] [place] [address] 12/21/2024 VERONIKA LAWSON Assessments Encounter Date Diagnosis (ICD Code) Assessment Notes Treatment Notes Treatment Clinical Notes Section Notes 11/12/2024 HTN (hypertension), benign (ICD-10 - I10) good control < 140/90; low sodium diet reviewed 11/12/2024 Persistent cough (ICD-10 - R05.3) resolved 07/29/2024 Persistent cough (ICD-10 - R05.3) 07/28/2024 Acute cough (ICD-10 - R05.1) 05/14/2024 Medicare annual wellness visit, subsequent (ICD-10 - Z00.00) Health Risk Assessment form reviewed with patient and scanned into chart 07/16/2024 Anxiety (ICD-10 - F41.9) side effects, risks, and benefits of medication reviewed; no driving/ETOH/oper ating machinery 07/16/2024 Renal cyst, right (ICD-10 - N28.1) see Dr Rojo although no documentation available of u/s from 05/2024 since pt was told that the cyt had increased in size 07/20/2024 Persistent cough (ICD-10 - R05.3) side effects, risks, and benefits of medication reviewed; rest/fluids; call later this week with update 11/13/2024 High calcium levels (ICD-10 - E83.52) 11/13/2024 Alkaline phosphatase elevation (ICD-10 - R74.8) 05/14/2024 UTI (lower urinary tract infection) (ICD-10 - N39.0) resolved 05/14/2024 HTN (hypertension), benign (ICD-10 - I10) good control < 140/90; low sodium diet reviewed 05/14/2024 Anxiety (ICD-10 - F41.9) good control with no acute sx; side effects, risks, and benefits of medication reviewed; no driving/ETOH/oper ating machinery 11/12/2024 Renal cyst, right (ICD-10 - N28.1) pt saw urology and will repeat u/s 02/202507/29/2024 Right middle lobe pulmonary infiltrate (ICD-10 - R91.8) 11/12/2024 Anxiety (ICD-10 - F41.9) good control with no acute sx; side effects, risks, and benefits of medication reviewed; no driving/ETOH/oper ating machinery 05/14/2024 Vitamin D deficiency (ICD-10 - E55.9) follow vit d 05/14/2024 Hyperthyroidism (ICD-10 - E05.90) f/u with endocrine 11/12/2024 Vitamin D deficiency (ICD-10 - E55.9) follow vit d 11/12/2024 Hyperthyroidism (ICD-10 - E05.90) f/u with endocrine including for enlarged thyroid 05/14/2024 Malignant neoplasm of left female breast, unspecified estrogen receptor status, unspecified site of breast (ICD-10 - C50.912) s/p lumpectomy and XRT; f/u with oncology at [facility] 05/14/2024 Elevated cholesterol (ICD-10 - E78.00) low fat/cholesterol diet reviewed 11/12/2024 Malignant neoplasm of left female breast, unspecified estrogen receptor status, unspecified site of breast (ICD-10 - C50.912) s/p lumpectomy and XRT; f/u with oncology at [facility] 11/12/2024 Elevated cholesterol (ICD-10 - E78.00) low fat/cholesterol diet reviewed 05/14/2024 Dyspnea on exertion (ICD-10 - R06.09) f/u with cardiology 05/14/2024 Heartburn (ICD-10 - R12) pt saw gi and was told to use omeprazole, but has not tried it-will start and f/u with gi for egd 11/12/2024 Dyspnea on exertion (ICD-10 - R06.09) f/u with cardiology 11/12/2024 Heartburn (ICD-10 - R12) good control; f/u with GI for egd 05/14/2024 Bloody taste in mouth (ICD-10 - R43.8) offered ent eval-declined; resolved 05/14/2024 Hyperglycemia (ICD-10 - R73.9) pt to minimize concentrated sweets/carbohydra te in her diet 11/12/2024 Hyperglycemia (ICD-10 - R73.9) pt to minimize concentrated sweets/carbohydra te in her diet 11/12/2024 Thyroid nodule (ICD-10 - E04.1) f/u with endocrine 05/14/2024 Thyroid nodule (ICD-10 - E04.1) f/u with endocrine 05/14/2024 Hypercalcemia (ICD-10 - E83.52) f/u with endocrine 11/12/2024 Hypercalcemia (ICD-10 - E83.52) f/u with endocrine 11/12/2024 Low TSH level (ICD-10 - R79.89) f/u with endocrine 05/14/2024 Low TSH level (ICD-10 - R79.89) f/u with endocrine 05/14/2024 Tremor (ICD-10 - R25.1) declines w/u including neurology eval; prob related to thyroid disease 11/12/2024 Tremor (ICD-10 - R25.1) declines w/u including neurology eval; prob related to thyroid disease 11/12/2024 Snoring (ICD-10 - R06.83) advised pt to do sleep study-declines 05/14/2024 Snoring (ICD-10 - R06.83) advised pt to do sleep study 11/12/2024 Pulmonary nodule (ICD-10 - R91.1) repeat ct chest 07/202505/14/2024 Other BSE monthly; sa fe sex practice/sunscree n/seatbelt/helmet /condom use reviewed; see ophthy at least once q24 months/see dentist at least once q6 months; exercise 4-5x/wk and follow healthy diet; pt declines checking hiv, hep c Plan Of Treatment Pending Test Test Name Order Date CT Abd and Pelvis w/ IV and Oral Contras t 11/07/2022 LIPID PANEL 07/03/2022 BASIC METABOLIC PANEL 07/03/2022 25OH VITAMIN D 07/03/2022 HEMOGLOBIN A1C 07/03/2022 Future Test Test Name Order Date LIPID PROFILE 02/06/2022 GLYCOHEMOGLOBIN (HBA1C) 02/06/2022 CBC W/OUT AUTOMATED DIFF 02/06/2022 COMP. METABOLIC 02/06/2022 25 OH Vitamin D 02/06/2022 TSH WITH REFLEX TO FT4 02/06/2022 Urinalysis w/ [employer] 2021 MAGNESIUM 08/29/2022 URINALYSIS MICROSCOPIC 04/05/2023 Sleep Study CPAP Titration 10/03/2023 Next Appt Details Provider Name:VERONIKA LAWSON, 0 07/15/2025 02:00:00 PM, [address] [place], [address], Insurance Providers Payer Name Payer Address Payer Phone Subscriber Number Group Number Insured Name Patient Relationship to Insured Coverage Start Date Coverage End Date MEDICARE [employer] [address] [place] [address] [id number] LARA ESCOBAR Self - patient is the insured [address] [place] [address] [id number] AMBER ESCOBAR Spouse - patient is the spouse of the insured 2 Medical (General) History Medical History History ICD Code Hypertension thyroid nodule - negative bx 06/06; sees Dr Pro ?elevated prolactin - negative w/u by Dr Swain now follows up with Dr Pro ?GERD left breast core biopsy-negative for mal ignancy 11/04 Vitamin D deficiency HCP: Dallas Escobar () Breast CA -L dx 11/2022- s/p lumpectomy at [facility] through Dr Pitt; followed by radiation x 1 week; Dr. Watkins [facility] (oncologist) Surgical History Surgery Date(Month/Year) Thyroid biopsy 10/01/23 lumpectomy 01/2023 1985, 1991 D&C, hysteroscopy 12/06
--- OUTSIDE RECORDS SUMMARY | 2025-05-11 16:49 | XMS_ITS | Encounter Summary ---
Author Organization [facility] Address [address] [facility] [address] [place] [address] Phone Care Team Providers Care Septic Tank Cleaner Name Role Phone Toan Tucker MD Primary Care Provider [phone] Qi Covington MD Unavailable Oliva Spears MD Unavailable Ban Pitt MD Unavailable [phone] Encounter Details Date Type Department Care Team (Late st Contact Info) Description 12/19/2023 Procedure Pass [facility] Breast Evaluation Center [address] [facility] [address] [place] [address] Social History Tobacco Use Types Packs/Day Years [...] Pass [facility] [address] [facility] [address] [facility] [address] [place] [address] 01/18/2025 Procedure Pass [facility], MRI [address] [facility] 4th [place] [address] 08/16/2025 9:55 AM EDT Appointment [facility], [facility] [address] [address] Cindy Cardona PA-C [address] [place] [address] [email or web address] Ward Watkins MD [address] [address] [email or web address] 08/16/2025 11:30 AM EDT Office Visit [facility], [facility], [facility] [address] [address] Ward Watkins MD [address] [address] [email or web address] 12/31/2025 10:30 AM EDT Office Visit [facility] General [facility] Comprehensive Breast Evaluation Center [address] [facility], [address] [place] [address] Lynette Licea, AUTOMOTIVE BRAKE TECHNICIAN [address] [facility] [address] [place] [address] [email or web address] 12/31/2025 11:40 AM EDT Appointment [facility] Breast [facility] [address] [facility] [address] [place] [address] Lynette Licea, AUTOMOTIVE BRAKE TECHNICIAN [address] [place] [facility] [address] [place] [address] [email or web address] 06/02/2026 2:20 PM EST Office Visit [facility] Eye and Ear Comprehensive Ophthalmology Service [address] [place] [address] Panda Recinos MD 243 [place] [address] [email or web address] documented as of this encounter Visit Diagnoses Not on filedocumented in this encounter Care Teams Septic Tank Cleaner Relationship Specialty Start Date End Date Toan Tucker MD 701 [facility] 100 [place] [address] [email or web address] PCP - General Internal Medicine 03/23/22 Qi Covington MD 32 [facility] [address] [place] [address] Radiation Oncology 02/15/23 Oliva Spears MD 800 [place] [address] Obstetrics and Gynecology 08/05/23 Ban Pitt MD 55 [facility] [address] [place] [address] [email or web address] Surgical Oncology 08/05/23 documented as of this encounter Additional Source Comments The information contained in this document represents components of the legal health record. It is not the complete legal health record.[facility]
--- OUTSIDE RECORDS SUMMARY | 2025-05-11 16:49 | XMS_ITS | Encounter Summary ---
Author Organization [facility] Address [address] [employer] [facility] [address] [place] [phone] Phone Care Team Providers Care Floor Layer Tile Name Role Phone Toan Tucker MD Primary Care Provider [phone] Qi Covington MD Unavailable [phone] Oliva Spears MD Unavailable Ban Pitt MD Unavailable [phone] Encounter Details Date Type Department Care Team (Late st Contact Info) Description 12/25/2024 Procedure Pass [facility] [address] [facility] [address] [place] [address] Social History Tobacco Use Types Packs/Day Years [...] st Contact Info) Description 01/12/2025 Procedure Pass [facility] [address] [facility] [address] [place] [address] 01/18/2025 Procedure Pass [facility], MRI [address] [facility] 4th [place] [address] 08/16/2025 9:55 AM EDT Appointment [facility], [facility] [address] [address] Cindy Cardona PA-C 450 [place] [address] [email or web address] Ward Watkins MD [address] [address] [email or web address] 08/16/2025 11:30 AM EDT Office Visit [facility], Isamar Connell [place] [facility], [facility] [address] [address] Ward Watkins MD [address] [address] [email or web address] [email or web address] 12/31/2025 10:30 AM EDT Office Visit [facility] Comprehensive [facility] [address] [facility], [address] [place] [address] Lynette Licea, CORRUGATOR MACHINE OPERATOR 32 [facility] [address] [place] [address] [email or web address] 12/31/2025 11:40 AM EDT Appointment [facility] Breast [facility] [address] [facility] [address] [place] [address] Lynette Licea, CORRUGATOR MACHINE OPERATOR [address] [facility] [address] [place] [address] [email or web address] 06/02/2026 2:20 PM EST Office Visit [facility] Comprehensive Ophthalmology Service [address] [place] [address] Panda Recinos MD 243 [place] [address] [email or web address] documented as of this encounter Visit Diagnoses Not on filedocumented in this encounter Care Teams Floor Layer Tile Relationship Specialty Start Date End Date Toan Tucker MD 701 [facility] 100 [place] [address] [email or web address] PCP - General Internal Medicine 03/23/22 Qi Covington MD 32 [facility] [address] [place] [address] [email or web address] Radiation Oncology 02/15/23 Oliva Spears MD 800 [place] [address] Obstetrics and Gynecology 08/05/23 Ban Pitt MD 55 [facility] [address] [place] [address] [email or web address] Surgical Oncology 08/05/23 documented as of this encounter Additional Source Comments The information contained in this document represents components of the legal health record. It is not the complete legal health record.[facility]
--- OUTSIDE RECORDS SUMMARY | 2025-05-11 16:49 | XMS_ITS | Encounter Summary ---
Author Organization [facility] Address [address] [facility] [address] [place] [address] Phone Care Team Providers Care Sales Store Checker Name Role Phone Toan Tucker MD Primary Care Provider [phone] Qi Covington MD Unavailable Oliva Spears MD Unavailable Ban Pitt MD Unavailable Encounter Details Date Type Department Care Team (Late st Contact Info) Description 01/08/2023 Ancillary Orders [facility] General Imaging 55 [place] [address] Ban Pitt MD [address] [address] [email or web address] Abnormal finding on breast imaging Social History Tobacco Use Types Packs/Day Years [...] st Contact Info) Description 01/12/2025 Procedure Pass [facility] [address] [facility] [address] [place] [address] 01/18/2025 Procedure Pass [facility], MRI [address] [address] 08/16/2025 9:55 AM EDT Appointment [facility], [facility] [address] [address] Cindy Cardona PA-C 450 [place] [address] [email or web address] Ward Watkins MD [address] [place] [address] [email or web address] [facility] 08/16/2025 11:30 AM EDT Office Visit [facility], Isamar Connell [place] [facility], [facility] [address] [address] Ward Watkins MD [address] [place] [address] [email or web address]. [facility] 12/31/2025 10:30 AM EDT Office Visit [facility] Comprehensive Breast Evaluation Center [address] [facility], [address] [place] [address] Lynette Licea, [facility] 32 [facility] [place] [address] [place] [address] [email or web address] 12/31/2025 11:40 AM EDT Appointment [facility] Breast [facility] [address] [facility] [address] [place], [place] [phone] Lynette Licea, COMPUTERIZED TABLE CUTTER 32 [facility] [place] [address] [place], [place] 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 Biopsy site is marked by a Q clip, amenable to needle localization. BI-RADS 6 KNOWN BIOPSY PROVEN MALIGNANCY ATTESTATION: I, Dr. Laina Warner as teaching physician, have reviewed the images for this case and if necessary edited the report originally created by Delvis Mejia. 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 COMPARISON: No relevant prior MGB imaging is available at time of dictation. Only the submitted outside imaging is used for comparison. TECHNIQUE: The imaging reviewed below was performed at an outside institution. [facility] facilities are not responsible for image quality, completeness of this examination, or accuracy of patient identity. At the request of the patient's referring clinician, we have been asked to interpret the examination(s) pertinent to facilitating breast care at [facility]. Outside Imaging Reviewed: Mammogram(s): Bilateral screening mammogram 12/18/2022. Postprocedural right mammogram 12/21/2022. Digital mammography and tomosynthesis were performed; the tomosynthesis images are available and were reviewed. Breast Composition: The breast tissue is heterogeneously dense which may obscure small masses. Ultrasound(s): Left breast diagnostic ultrasound 12/18/2022. Ultrasound is an focusing machine operator-dependent real-time examination and therefore no interpretation can be rendered on the submitted US imaging. Any US findings mentioned below are based only on what has been described in the outside imaging reports. MRI(s): None. FINDINGS: In the left breast, there are 2 previous biopsy markers in the central breast (ribbon) and in the slightly upper outer quadrant at anterior depth (Y-shape), which have been present since 11/01/2020. Pathology report from outside facility for the core biopsy at 1:00 likely corresponds to the Y-shape clip and was found to be benign (breast epithelium with microcysts and usual ductal hyperplasia, stromal fibrosis). Screening mammogram from 12/18/2022 shows architectural distortion with associated spiculated mass adjacent to the upper outer quadrant breast biopsy marker, which was reported to correspond to an irregular mass at 12:00 3 cm from nipple measuring 7 x 7 x 5 mm on ultrasound from 12/21/2022. The 12:00 mass was biopsied and marked with Q clip at outside facility and determined to be malignant. Postprocedure left breast mammogram shows Q clip to be adjacent to the medial aspect of the Y clip. [facility] pathology review: FINAL PATHOLOGIC DIAGNOSIS: Consult materials received from [facility], [place], [place] A. BREAST ULTRASOUND-GUIDED NEEDLE CORE BIOPSY, LEFT 12:00 MASS, 3 CM FROM NIPPLE ([id number], A1; 12/21/2022): Invasive ductal carcinoma, grade 2, spanning at least 0.7 cm. Ductal carcinoma in-situ, grade 2. NOTE: Results of outside immunohistochemical stains for keratin 5/6 and p63 support a diagnosis of invasive carcinoma. Procedure Note Laina Warner MD - 01/08/2023 BI MAMMOGRAM OUTSIDE WITH INTERPRETATION OR CONSULT Additional patient information: 67-year-old patient with recentlydiagnosed invasive ductal carcinoma and ductal carcinoma in situ in theleft breast at the site of previous benign left breast biopsy in 2015(outside pathology: breast epithelium with microcysts and usual ductalhyperplasia, stromal fibrosis). COMPARISON: No relevant prior MGB imaging is available at time ofdictation. Only the submitted outside imaging is used for comparison. TECHNIQUE: [facility] facilities are not responsible for imagequality, completeness of this examination, or accuracy of patientidentity. At the request of the patient's referring clinician, we havebeen asked to interpret the examination(s) pertinent to facilitatingbreast care at [facility]. Outside Imaging Reviewed: Mammogram(s): Bilateral screening mammogram 12/18/2022. Postproceduralright mammogram 12/21/2022. Digital mammography and tomosynthesis were performed; the tomosynthesisimages are available and were reviewed. Breast Composition: The breast tissue is heterogeneously dense which mayobscure small masses. Ultrasound(s): Left breast diagnostic ultrasound 12/18/2022. Ultrasound is an focusing machine operator-dependent real-time examination and therefore nointerpretation can be rendered on the submitted US imaging. Any USfindings mentioned below are based only on what has been described in [facility] imaging reports. MRI(s): None. FINDINGS: In the left breast, there are 2 previous biopsy markers in the centralbreast (ribbon) and in the slightly upper outer quadrant at anterior depth(Y-shape), which have been present since 11/01/2020. [facility] 1:00 likely corresponds to theY-shape clip and was found to be benign (breast epithelium with microcystsand usual ductal hyperplasia, stromal fibrosis). Screening mammogram from 12/18/2022 shows architectural distortion withassociated spiculated mass adjacent to the upper outer quadrant breastbiopsy marker, which was reported to correspond to an irregular mass at12:00 3 cm from nipple measuring 7 x 7 x 5 mm on ultrasound from12/21/2022. The 12:00 mass was biopsied and marked with Q clip at outsidefacility and determined to be malignant. Postprocedure left breastmammogram shows Q clip to be adjacent to the medial aspect of the Yclip. [facility] pathology review: FINAL PATHOLOGIC DIAGNOSIS: Consult materials received from [facility], [place], [place] A. BREAST ULTRASOUND-GUIDED NEEDLE CORE BIOPSY, LEFT 12:00 MASS, 3 CM FROM NIPPLE ([id number], A1; 12/21/2022): Invasive ductal carcinoma, grade 2, spanning at least 0.7 cm. Ductal carcinoma in-situ, grade 2. NOTE: Results of outside immunohistochemical stains for keratin 5/6 andp63 support a diagnosis of invasive carcinoma. IMPRESSION: Left breast invasive ductal carcinoma and ductal carcinoma in situ at thesite of previous benign biopsy from 2014 in the upper outer quadrant.Biopsy site is marked by a Q clip, amenable to needle localization. BI-RADS 6 KNOWN BIOPSY PROVEN MALIGNANCY ATTESTATION: I, Dr. Laina Warner as teaching physician, have reviewedthe images for this case and if necessary edited the report originallycreated by Delvis Mejia. us Ban Pitt MD IMG OUTSIDE IMAGING W/ INTE RPRETATION Final Result [address] [address] documented in this encounter Visit Diagnoses Diagnosis Abnormal finding on breast imaging Abnormal finding on breast imaging documented in this encounter Care Teams Sales Store Checker Relationship Specialty Start Date End Date Toan Tucker MD [address] [place] [address] [email or web address] PCP - General Internal Medicine 03/23/22 Qi Covington MD [address] [facility] [address] [place] [address] Radiation Oncology 02/15/23 Oliva Spears MD [address] [place] [address] [place] [address] Obstetrics and Gynecology 08/05/23 Ban Pitt MD [address] [place] [address] [email or web address] Surgical Oncology 08/05/23 documented as of this encounter Additional Source Comments The information contained in this document represents components of the legal health record. It is not the complete legal health record.[facility]
--- OUTSIDE RECORDS SUMMARY | 2025-05-11 16:49 | XMS_ITS | Encounter Summary ---
Author Organization [facility] Address [address] [place] [address] Care Team Providers Care Rod Buster Helper Name Role Phone Toan Tucker MD Primary Care Provider [phone] Oliva Spears MD Unavailable Encounter Details Date Type Department Care Team (Late Contact Info) Description 05/09/2023 Orders Only [facility] Department of Obstetrics and Gynecology [address] [place] [address] Oliva Spears MD [address] [facility] [place] [address] Social History Tobacco Use Types Packs/Day Years [...] Description 01/13/2026 1:00 PM EDT Office Visit [facility] [address] [place] [address] Yasmine [place], AUTOMAT WATCHER [address] [facility] [place] [address] 02/16/2026 1:00 PM EDT Office Visit [facility] Department of Obstetrics and Gynecology [address] [place] [address] Oliva Spears MD [address] [place], [place] [id number] documented as of this encounter Visit Diagnoses Not on filedocumented in this encounter Care Teams Rod Buster Helper Relationship Specialty Start Date End Date Toan Tucker MD [facility] [address] [place] [address],[address] [place] [address] PCP - General 07/24/17 Oliva Spears MD [address] [facility] OFFICE [place], [place] [id number] Obstetrics and Gynecology 04/27/21 documented as of this encounter
--- OUTSIDE RECORDS SUMMARY | 2025-05-11 16:49 | XMS_ITS | Data Portability ---
Author Organization [place] [facility] Sandy [facility]on [place] Address [address] [place] [address] Care Team Providers Care Community Support Specialist Name Role Phone VERONIKA LAWSON Primary Care Provider VERONIKA LAWSON Primary Care Provider Assessment Encounter Date Assessment Date Assessment LastModified by Organization Details LastModified Time 11/19/2022 11/19/2022 Symptomatic knee osteoarthritis. We discussed the nature of osteoarthritis and findings today were reviewed with the patient. Treatment options were discussed and Lorie would like to begin with conservative management. She will continue to ice and use Tylenol. We discussed this is safe in moderate doses and she can always consult the drug label for guidance. She was also given a referral for physical therapy for both knees and will begin to implement her own lifestyle modifications to progress toward a healthier diet and exercise routine. Questions invited & answered. Patients verbalizes understanding and agreement with plan. She will follow up with our office as needed. Not available 12/28/2022 12:54:17 11/25/2023 11/25/2023 Symptomatic bilateral knee osteoarthritis. She refused new x-rays today telling me that she does not think that her nvwl-pk-hrdy arthritis will be any different. We reviewed the natural history of osteoarthritis. The patient understands that symptoms may progress over time requiring further intervention. We discussed in detail available treatment options. We discussed activity modification, especially avoiding impact type activities. We discussed the need for an ongoing maintenance flexibility and strengthening program. This should involve the core musculature, the hip, as well as the quadriceps and hamstrings. Intermittent icing 20 minutes off 3 to 4 times a day with the skin protected may be helpful for control of swelling. Nwdh-exq-deykpnz anti-inflammatory medications with appropriate GI precautions or Tylenol may be helpful in controlling intermittent symptoms of pain. An assistive device such as a cane may be helpful in unloading the joint. We also discussed other interventions including therapeutic injections. We discussed varieties of injections including cortisone, viscosupplementat ion, and PRP. We also discussed the possibility of surgical intervention if symptoms persist. We discussed arthroscopic intervention as well as total knee arthroplasty. We talked about injections but she has reservations as she has some concern that her contracted leukemia after a cortisone injection. We decided on a trial of physical therapy, prescription provided. She is going to work on her overall conditioning. She understands that long-term management would be consideration of a total knee arthroplasty. Greater than 30 minutes was spent with the encounter today, including face to face time with the patient, documentation, review of records/imaging if applicable, and coordination of care. PRIOR: Symptomatic knee osteoarthritis. We discussed the nature of osteoarthritis and findings today were reviewed with the patient. Treatment options were discussed and Lorie would like to begin with conservative management. She will continue to ice and use Tylenol. We discussed this is safe in moderate doses and she can always consult the drug label for guidance. She was also given a referral for physical therapy for both knees and will begin to implement her own lifestyle modifications to progress toward a healthier diet and exercise routine. Not available 11/25/2023 19:00:28 Plan of Treatment Reminders Order Date Submit Date Provider Last Modified By Organization Details Last Modified Time Details Appointments None recorded. Lab None recorded. Referral physical therapist referral 2022 023 irving [email or web address] Not available 3 08:17:18 Procedures None recorded. Surgeries None recorded. Imaging XR, knee, 1 or 2 view 2022 023 ernie 2 [facility], [address], [place], [address], 3 19:16:16 XR, knee, 1 or 2 view 2022 023 ernie 2 [facility], [address], [place], [address], 3 19:16:16 Medication Orders None recorded. Patient TargetsNo targets recorded. Patient Instructions Encounter Date Encounter Id Patient Instructions Last Modified By Organization Details Last Modified Time 11/19/2022 [id number] Osteoarthritis i s a common source of pain in the knee. The Arthritis Foundation website (www.arthritis.org ) has excellent information on osteoarthritis and I encourage you to visit it. Some things to consider for treating your arthritis symptoms: -over the counter medications such as NSAIDs and/or Tylenol (discuss with your doctor if you cannot take these medications and to review side effects). Always take NSAIDs with food. -maintain an ideal body weight. -low impact aerobic activities such as elliptical, pool exercise, biking. -exercises to increase quadriceps strength, hip strength, and core strength. -flexibility exercises for the hamstrings and hips. -icing 15-20 minutes on with the skin protected 3-4 times per day. -there are injections that may be helpful: cortisone, lubricating injections (viscosupplementat ion), and/or PRP (platelet rich plasma). -use of a cane or walker to help offload the affected knee. -use of a brace. If symptoms persist despite treatment, surgery may be a consideration. Generally advanced arthritis is treated with a knee replacement ([email or web address]). Not available 11/19/2022 11:34:41 4 views of the bilateral knees were obtained today 11/19/2022 in the [place] office demonstrating significant degenerative changes. There is complete loss of joint space in the bilateral medial compartments, sclerotic changes and osteophyte spurring arising from the tibial plateaus and patellas. No acute fractures or dislocations. [email or web address] Not available 11/19/2022 18:54:34 Reason for Referral Physical Therapist Referral for Osteoarthritis of right knee joint Referring Physician: Jovanny Sandoval, Orthopedic Surgery, Encounter Date: 11/19/2022 Problems Name Problem SNOMED Code Status Onset Date Resolution Date Notes Provider Name and Address Organization Details Recorded Time Problem 36267745 Active No known active problems Not Available [facility] 5 00:30:47 Osteoarth ritis of right knee joint 81073606269 9100 Active 2022 Jovanny Sandoval MD [address], [place], [address] , [place] [facility] 3 11:31:59 Pain of left knee joint 15472975564 4107 Active 2022 Joavnny Sandoval MD [address], [place], [address] , [place] [facility] 3 11:32:00 Pain of right knee joint 23108198173 4100 Active 2023 Jovanny Sandoval MD [address], [place], [address] , [place] [facility] 4 07:09:19 Osteoarth ritis of left knee joint 13991876165 9109 Active 2023 Jovanny Sandoval MD [address], [place], [address] , [place] [facility] 4 07:09:19 Primary gonarthro sis, bilateral 360921948 Active 2024 JACOBO GRADY PA-C [address], [place], [address] , [facility] 5 09:55:39 Problem Notes None recorded. Medical Equipment None Reported. Allergies Allergen ID Allergen Name Allergen Category Reaction Reaction Severity Criticality Documentation Date Start Date Code Code System Note Provider Name and Address Organization Details Recorded Time 59218 codeine medicatio n Not available Not available Not available 11/25/2023 2670 RxNorm Crystal Bustillo null, [place] - [facility] 4 13:32:35 Medications Name Sig Start Date Stop Date Status Note LastModified by Organization Details LastModified Time peg-electrol yte solution 420 gram oral solution FOR COLONOSCOPY -PLEASE FOLLOW TRILYTE/DUL COLAX PREP INSTRUCTION S PROVIDED DURING OFFICE VISIT active Not Available Not Available No t Available lorazepam 0.5 mg tablet TAKE 1 TABLET BY MOUTH EVERY DAY NEEDED active Not Available Not Available No t Available nitrofuranto in macrocrystal 100 mg capsule TAKE 1 CAPSULE BY MOUTH TWICE A DAY FOR 5 DAYS. active Not Available Not Available No t Available methimazole 5 mg tablet TAKE A 1/2 TABLET BY MOUTH ONCE DAILY FOR 90 DAYS active Not Available Not Available No t Available omeprazole 20 mg capsule,lizette yed release 2023 active Not Available Not Available Not Avai lable lisinopril 20 mg-hydrochlo rothiazide 25 mg tablet TAKE 1 TABLET BY MOUTH EVERY DAY active Not Available Not Available No t Available loteprednol etabonate 0.5 % eye drops,suspen mason INSTILL 1 DROP TWICE A DAY INTO BOTH EYES active Not Available Not Available No t Available letrozole 2.5 mg tablet TAKE 1 TABLET BY MOUTH EVERY DAY active Not Available Not Available No t Available amoxicillin 875 mg-potassium clavulanate 125 mg tablet TAKE 1 TABLET BY MOUTH EVERY 12 HOURS FOR 10 DAYS active Not Available Not Available Not Available cholecalcife rol (vitamin D3) 25 mcg (1,000 unit) capsule Take by mouth. active Not Available Not Available No t Available Flowflex COVID-19 Antigen Home Test kit USE DIRECTED active Not Available Not Available No t Available Paxlovid 300 mg (150 mg x 2)-100 mg tablets in a dose pack TAKE 3 TABLETS BY MOUTH TWICE A DAY FOR 5 DAYS active Not Available Not Available No t Available Vitals Date Recorded Heart rate Body weight Body mass index (BMI) Body height Systolic And Diastolic Provider Name and Address Organization Details Last Updated DateTime 09/02/2023 102 /min 61875 g 38.01 kg/m2 148.6 cm 136/68 mm[Hg] Not Available [facility] 23:[facility]07 Date Recorded Body height Body mass index (BMI) Body weight Provider Name and Address Organization Details Last Updated DateTime 11/25/2023 147.32 cm 37.6 kg/m2 59628.[address] [place] [facility] 11/25/2023 13:30:55 Social History Question Answer Notes LastModified by Organizat ion Details LastModified Time Tobacco Smoking Status Former Smoker Germaine leo, [place] [facility] 11/25/2023 13:32:30 When Did You Quit Smoking? 16+yearssinc elastcigaret te [email or web address] Information not available 11/25/2023 Sex: Unknown Functional Status Question Answer Note LastModified by Organizat ion Details LastModified Time Do you use any illicit or recreational drugs? No [email or web address] Information not available 11/25/2023 Do you or have you ever used any other forms of tobacco or nicotine? No [email or web address] Information not available 11/25/2023 What is your level of alcohol consumption? None [email or web address] Information not available 11/25/2023 Mental Status None recorded. Family History Nothing Reported. Medical History Condition Response Reflux/GERD Y Hypertension Y Gynecological HistoryNo gynecological history recorded. Obstetrics History GPAL:G 0 P 0 0 0 0 Past Encounters Encounter ID Performer Location Encounter Start Date Encounter Closed Date Diagnosis/Indication Diagnosis SNOMED-CT Code Diagnosis ICD10 Code Diagnosis IMO Codes Diagnosis Note [id number] Jovanny Sandoval MD [address] [address] 11/19/2022 10:46:55 11/19/2022 11:45:42 Pain of right knee joint 8621977916 07483 M25.561 Pain of le ft knee joint 6494898119 52682 M25.562 Osteoarthr itis of right knee joint 2328198780 32963 M17.11 Osteoarthr itis of left knee joint 2107756391 88136 M17.12 [id number] Jovanny Sandoval MD [facility] [address] [address] 11/25/2023 13:09:54 11/25/2023 13:38:42 Osteoarthritis of right knee joint 5186755115 31060 M17.11 Pain of le ft knee joint 8679328347 15517 M25.562 Pain of ri ght knee joint 7842401744 99510 M25.561 Osteoarthr itis of left knee joint 3574047143 99070 M17.12 Health Concerns Section Related Observation LastModified by Organization Detai ls LastModified Time None Recorded Concern Status LastModified by Organization Details LastModified Time None Recorded Advance Directives Directive None Recorded Payers Insurance Date Sequence Insurance Name Policy Number Policy Bacon Covered Member ID Bacon Member ID Guarantor Name 09/01/2024 2 [place]EE PROGRAM (PPO) 113 Maicol Escobar [id number] Lorie Escobar 09/01/2024 1 [place] Lorie Escobar [id number] Lorie Escobar Notes Date Note Type Note Provider Name and Address Organization Details Recorded Time 11/19/2022 text/html ROS as noted in the HPI Patient is a pleasant, mildly deconditioned 67 year old female who presents complaining of bilateral knee pain. She states she was seen for similar symptoms years ago but they began bothering her again approximately a year to year and a half ago. She feels this is likely due to having to neglect some of her own health routine when her got sick and was in and out of the hospital for multiple stays and treatments which led to negative diet and exercise changes in her life. Her symptoms today include a dull, aching, throbbing pain accompanied by swelling, locking tightness. She endorses occasionally feeling unsteady. She finds great relief with icing and tylenol though she is hesitant to take it too often. She reports she also used to walk and do yoga regularly which she has not done in a long while. She rates her pain as a 3/10 and is hoping to get some guidance today to keep it from progressing. She denies numbness, tingling, or loss of sensation. Denies radiation of pain to the thighs/hips or below the knee. Medical history is significant for hypertension treated with Lisinopril and hyperthyroidism treated with Methimazole. She reports a drug allergy to codeine. Denies alcohol or illicit drug use and has not smoked in 30+ years. Jovanny Sandoval MD [address], [place], [address], [place] [facility] 12/28/2022 12:54:57 11/25/2023 text/html ROS as noted in the HPI Patient returns after a year hiatus for a discussion regarding her bilateral knees. She rates her pain as an 8/10. She feels deconditioned and that she has lost muscle . She feels limited with daily activities. She did try some physical therapy before the COVID pandemic, and seem to cause more pain that helped. She is not yet ready to consider anything surgical, she wanted to come in to have a discussion about other measures that might be of benefit and to consider returning her course of physical therapy. PRIOR 10/2022:Patient is a pleasant, mildly deconditioned 67 year old female who presents complaining of bilateral knee pain. She states she was seen for similar symptoms years ago but they began bothering her again approximately a year to year and a half ago. She feels this is likely due to having to neglect some of her own health routine when her got sick and was in and out of the hospital for multiple stays and treatments which led to negative diet and exercise changes in her life. Her symptoms today include a dull, aching, throbbing pain accompanied by swelling, locking tightness. She endorses occasionally feeling unsteady. She finds great relief with icing and tylenol though she is hesitant to take it too often. She reports she also used to walk and do yoga regularly which she has not done in a long while. She rates her pain as a 3/10 and is hoping to get some guidance today to keep it from progressing. She denies numbness, tingling, or loss of sensation. Denies radiation of pain to the thighs/hips or below the knee. Medical history is significant for hypertension treated with Lisinopril and hyperthyroidism treated with Methimazole. She reports a drug allergy to codeine. Denies alcohol or illicit drug use and has not smoked in 30+ years. Jovanny Sandoval MD [address], [place], [address], [place] [facility] 11/25/2023 19:00:37 OBGyn Episode No OBEpisode recorded.
--- OUTSIDE RECORDS SUMMARY | 2025-05-11 16:49 | XMS_ITS | Clinical Summary ---
Author Organization [facility] Address [address] [place] [address] Care Team Providers Care Front Office Clerk Name Role Phone Unavailable Primary Care Provider Unavailabl e Social History Tobacco Use Types Packs/Day Years Used Date Smoking Tobacco: Never Assessed Comments Unknown Sex and Gender Information Value Date Recorded Sex Assigned at Not on file Legal Sex Female 3:16 PM EDT Gender Identity Not on file Sexual Orientation Not on file Plan of Treatment Health Maintenance Due Date Last Done Comments Advance Care Planning 1955 Hepatitis C Virus Screening 1955 DTaP/Tdap/Td Vaccines (1 - Tdap) 10/26/1974 Pneumococcal Vaccines 50+ (1 of 1 - PCV) 10/26/2005 Zoster (Shingles) Vaccine (1 of 2) 10/26/2005 COVID-19 Vaccine ( - 2024-2 6 season) 2025 RSV Vaccine 50 years and old er and Patients (1 - 1-dose 75+ series) 10/26/2030 Hepatitis B Vaccines Aged Out No long er eligible based on patient's age to complete this topic
--- OUTSIDE RECORDS SUMMARY | 2025-05-11 16:49 | XMS_ITS | Encounter Summary ---
Author Organization [facility] Address [address] [facility] [address] [place] [address] Phone Care Team Providers Care Lieutenant/Deputy Name Role Phone Toan Tucker MD Primary Care Provider [phone] Qi Covington MD Unavailable [phone] Oliva Spears MD Unavailable Ban Pitt MD Unavailable [phone] Encounter Details Date Type Department Care Team (Late st Contact Info) Description 02/07/2024 Procedure Pass [facility] [place] [facility] [place], [facility] [address] [facility] [address]th [place], [place] [id number] Social History Tobacco Use Types Packs/Day Years [...] st Contact Info) Description 01/12/2025 Procedure Pass [facility] [address] [facility] [address] [place] [address] 01/18/2025 [facility] [place] [facility] [address] [facility] 4th [place] [address] 08/16/2025 9:55 AM EDT Appointment [facility] [place], [facility] [address] [address] Cindy Cardona PA-C [address] [place] [address] [email or web address] Ward Watkins MD [address] [address] [email or web address] 08/16/2025 11:30 AM EDT Office Visit [facility], [facility], [facility] [facility] [address] [address] Ward Watkins MD [address] [address] [email or web address] 12/31/2025 10:30 AM EDT [facility] [place] [facility] [address] [facility], [address] [place] [address] Lynette Licea, SEFERINO [address] [facility] [address] [place] [address] [email or web address] 12/31/2025 11:40 AM EDT Appointment [facility] [address] [facility] [address] [place] [address] Lynette Licea, SEFERINO [address] [facility] [address] [place] [address] [email or web address] 06/02/2026 2:20 PM EST Office Visit [facility] [address] [address] Panda Recinos MD 243 [place] [address] [email or web address] documented as of this encounter Visit Diagnoses Not on filedocumented in this encounter Care Teams Lieutenant/Deputy Relationship Specialty Start Date End Date Toan Tucker MD [address] [facility] 100 [place] [address] [email or web address] PCP - General Internal Medicine 03/23/22 Qi Covington MD 32 [facility] [address] [place] [address] [email or web address] Radiation Oncology 02/15/23 Oliva Spears MD [address] [place] [address] Obstetrics and Gynecology 08/05/23 Ban Pitt MD 55 [facility] [address] [place] [address] [email or web address] Surgical Oncology 08/05/23 documented as of this encounter Additional Source Comments The information contained in this document represents components of the legal health record. It is not the complete legal health record.[facility]
--- OUTSIDE RECORDS SUMMARY | 2025-05-11 16:49 | XMS_ITS | Encounter Summary ---
Author Organization [facility] Address [address] [place] [address] [place] [address] Phone Care Team Providers Care Postie Name Role Phone Toan Tucker MD Primary Care Provider [phone] Qi Covington MD Unavailable [phone] Oliva Spears MD Unavailable Ban Pitt MD Unavailable [phone] Reason for Referral * Outpatient Procedure - Closed Specialty Diagnoses / Procedures Referred By Contac t Referred To Contact Radiology Diagnoses Malignant neoplasm of left female breast, unspecified estrogen receptor status, unspecified site of breast Procedures GROUP HOME Breast Needle Localization (Left) Mammogram Needle Localization (Left) Ban Pitt MD Phone: tel: fax: mailto:[email or web address] Referral ID Status Reason Start Date Expiration Date Visits Re quested Visits Authorized [id number] Closed 01/18/2023 01/18/2024 1 1 Encounter Details Date Type Department Care Team (Late st Contact Info) Description 01/22/2023 Ancillary Orders [facility] [address] [place] [address] Ban iPtt MD [address] [address] [email or web address] Malignant neoplasm of left female breast, unspecified estrogen receptor status, unspecified site of breast Social History Tobacco Use Types Packs/Day Years [...] st Contact Info) Description 01/12/2025 Procedure Pass [facility] Breast [facility] [address] [facility] [address] [place] [address] 01/18/2025 Procedure Pass [facility], [facility] [address] [address] 08/16/2025 9:55 AM EDT Appointment [facility], [facility] [address] [address] Cindy Cardona PA-C [address] [place] [id number] [email or web address]. [facility] Ward Watkins MD [address] [place] [address] [email or web address]. [facility] 08/16/2025 11:30 AM EDT Office Visit [facility], [facility], [facility] [address] [address] Ward Watkins MD [address] [place] [id number] [email or web address]. [facility] 12/31/2025 10:30 AM EDT Office Visit [facility] Comprehensive Breast Evaluation Center [address] [facility], [address] [place] [address] Lynette Licea, SEEING EYE DOG TEACHER [address] [facility] [address] [place] [address] [email or web address] 12/31/2025 11:40 AM EDT Appointment [facility] Breast [facility] [address] [facility] [address] [place] [address] Lynette Licea, SEEING EYE DOG TEACHER [address] [facility] [address] [place] [address] [email or web address] 06/02/2026 2:20 PM EST Office Visit [facility] Comprehensive Ophthalmology Service [address] [address] Panda Recinos MD 243 [place] [address] [email or web address] documented as of this encounter Results * GROUP HOME Breast Needle Localization (Left) (01/22/2023 11:33 AM EDT) Anatomical Region Laterality Modality Breast Left, Breast Bilateral Left Ul trasound 01/22/2023 1:45 PM EDT Impressions 01/22/2023 5:40 PM EDT Ultrasound-guided needle localization of the left breast - please see report content for details. The attending physician, Dr. Zoran Bravo, was present for the entire radiologic and lee portions of the procedure and was immediately available for the non-critical/lee portions. ATTESTATION: I, Dr. Zoran Bravo as teaching physician, have reviewed the images for this case and if necessary edited the report originally created by Roselyn Weber. Narrative 01/22/2023 5:40 PM EDT BI GROUP HOME BREAST NEEDLE LOCALIZATION (LEFT) Additional patient information: The patient is status post US-guided biopsy of a mass in the left breast, 12:00, 3 cm from the nipple, yielding IDC/DCIS. The biopsy clip (Q and X shaped clips) are in good position. The patient presents for single- site localization prior to surgery scheduled on another day. COMPARISON: Comparison is made with relevant prior imaging. TECHNIQUE: The procedure was explained to the patient, including discussion of risks and benefits, and written informed consent was obtained. A preprocedural timeout was performed to confirm patient identity with multiple identifiers, as well as the side of the procedure to be performed. Ultrasound imaging was performed to localize the target. The procedure site was prepped using standard aseptic technique. Local anesthesia was administered and documented in the EMR. Under ultrasound guidance, needle localization was performed of the target lesion. FINDINGS: SITE #1 Location: Left breast, 12:00, 3 cm from the nipple Target: Mass with associated Q and X shaped clip (IDC/DCIS) Localizer device: Tag Post procedure mammogram: Localizer device in good position relative to the target. Specimen radiograph: Will be performed separately and dictated separately. The patient was discharged home in stable condition. Procedure Note Zoran Bravo MD, MPH - 01/22/2023 BI GROUP HOME BREAST NEEDLE LOCALIZATION (LEFT) Additional patient information: The patient is status post US-guidedbiopsy of a mass in the left breast, 12:00, 3 cm from the nipple, yieldingIDC/DCIS. The biopsy clip (Q and X shaped clips) are in good position. Thepatient presents for single-site localization prior to surgery scheduledon another day. COMPARISON: Comparison is made with relevant prior imaging. TECHNIQUE: The procedure was explained to the patient, including discussion of risksand benefits, and written informed consent was obtained. A preproceduraltimeout was performed to confirm patient identity with multipleidentifiers, as well as the side of the procedure to be performed. Ultrasound imaging was performed to localize the target. The proceduresite was prepped using standard aseptic technique. Local anesthesia wasadministered and documented in the EMR. Under ultrasound guidance, needlelocalization was performed of the target lesion. FINDINGS: SITE #1 Location: Left breast, 12:00, 3 cm from the nipple Target: Mass with associated Q and X shaped clip (IDC/DCIS) Localizer device: Tag Post procedure mammogram: Localizer device in good position relative tothe target. Specimen radiograph: Will be performed separately and dictatedseparately. The patient was discharged home in stable condition. IMPRESSION: Ultrasound-guided needle localization of the left breast - please seereport content for details. The attending physician, Dr. Zoran Bravo, was present for the entireradiologic and lee portions of the procedure and was immediately availablefor the non-critical/lee portions. ATTESTATION: I, Dr. Zoran Bravo as teaching physician, have reviewedthe images for this case and if necessary edited the report originallycreated by Roselyn Weber. us Ban Pitt MD IMG BI IRP GUIDED BREAST LA OC Final Result documented in this encounter Visit Diagnoses Diagnosis Malignant neoplasm of left female breast, unspecified estrogen receptor status, unspecified site of breast Malignant neoplasm of left female breast, unspecified estrogen receptor status, unspecified site of breast documented in this encounter Care Teams Postie Relationship Specialty Start Date End Date Toan Tucker MD [address] [place] [address] [address] [place] [address] [email or web address] PCP - General Internal Medicine 03/23/22 Qi Covington MD 32 [facility] [address] [place] [address] Radiation Oncology 02/15/23 Oliva Spears MD [address] [place] [address] [place] [address] Obstetrics and Gynecology 08/05/23 Ban Pitt MD 55 [facility] [address] [place] [address] [email or web address] Surgical Oncology 08/05/23 documented as of this encounter Additional Source Comments The information contained in this document represents components of the legal health record. It is not the complete legal health record.[facility]
--- OUTSIDE RECORDS SUMMARY | 2025-05-11 16:49 | XMS_ITS | Encounter Summary ---
Author Organization [facility] Address [address] [place] [address] Care Team Providers Care Anesthesia Attending Name Role Phone Toan Tucker MD Primary Care Provider [phone] Oliva Spears MD Unavailable [phone] Encounter Details Date Type Department Care Team (Late st Contact Info) Description 04/13/2025 Results Follow-Up [facility] Department of Gastroenterology [address] [place], [place] [id number] Yasmine Colorado, RNP [address] [facility] [place] [address] Magnesium Social History Tobacco Use Types Packs/Day Years [...] No / Unsure 04/13/2025 1:27 PM EST documented as of this encounter Plan of Treatment Upcoming Encounters Date Type Department Care Team (Late st Contact Info) Description 01/13/2026 1:00 PM EDT Office Visit [facility]astroenterology [address] [place] [address] Yasmine Colorado, RNP [address] [facility] [place] [address] 02/16/2026 1:00 PM EDT Office Visit [facility] Department of Obstetrics and Gynecology [address] [place] [address] Oliva Spears MD [address] [place] [address] documented as of this encounter Visit Diagnoses Not on filedocumented in this encounter Care Teams Anesthesia Attending Relationship Specialty Start Date End Date Toan Tucker MD [facility] [address] [place] [address] PCP - General 07/24/17 Oliva Spears MD [address] [place] [id number] Obstetrics and Gynecology 04/27/21 documented as of this encounter
--- OUTSIDE RECORDS SUMMARY | 2025-05-11 16:49 | XMS_ITS | Encounter Summary ---
Author Organization [facility] Address [address] [facility] [address] [place] [address] Phone Care Team Providers Care Clinical Review Specialist Name Role Phone Toan Tucker MD Primary Care Provider [phone] Qi Covington MD Unavailable Oliva Spears MD Unavailable Ban Pitt MD Unavailable Encounter Details Date Type Department Care Team (Latest Contact Info) Description 12/25/2024 Ancillary Orders [facility] Breast Evaluation Center [address] [facility] [address] [place] [address] Lynette Licea, PROGRAM ANALYST [address] [facility] [address] [place] [address] [email or web address] Breast asymmetry (Primary Dx) Social History Tobacco Use Types [...] st Contact Info) Description 01/12/2025 Procedure Pass [facility] Breast Evaluation Center [address] [facility] [address] [place] [address] 01/18/2025 Procedure Pass [facility], [facility] [address] [address] 08/16/2025 9:55 AM EDT Appointment [facility], [facility] [address] [address] Cindy Cardona PA-C [address] [place] [address] [email or web address] Ward Watkins MD [address] [facility] [address] [place] [address] [email or web address]. [facility] 08/16/2025 11:30 AM EDT Office Visit [facility], [facility], [facility] [address] [address] Ward Watkins MD [address] [facility] [address] [place] [address] [email or web address]. [facility] 12/31/2025 10:30 AM EDT [facility] [address] [facility], [address] [place] [address] Lynette Licea, PROGRAM ANALYST [address] [facility] [address] [place] [address] [email or web address] 12/31/2025 11:40 AM EDT Appointment [facility] Breast Evaluation [facility] [address] [facility] [address] [place] [address] Lynette Licea, PROGRAM ANALYST [address] [facility] [address] [place] [address] [email or web address] 06/02/2026 2:20 PM EST Office Visit [facility] Comprehensive Ophthalmology Service [address] [place] [address] Panda Recinos MD [address] [place] [address] [email or web address] documented as of this encounter Results * BI US BREAST LIMITED (RIGHT) (01/01/2025 9:42 AM EDT) Anatomical Region Laterality Modality Breast Right, Breast Bilateral Right U ltrasound 01/01/2025 9:03 AM EDT Impressions 01/01/2025 9:45 AM EDT Focal asymmetry seen on recent screening mammogram is stable compared to prior mammograms and demonstrates sonographic features consistent with those of a simple cyst on ultrasound. No further follow-up is recommended. Patient can return to screening schedule. BI-RADS 2 BENIGN Results and recommendations were communicated to the patient at time of examination. Narrative 01/01/2025 9:45 AM EDT BI MAMMOGRAM DIAGNOSTIC NO TOMOSYNTHESIS NO CAD (RIGHT), BI US BREAST LIMITED (RIGHT) Additional patient information: Focal asymmetry on recent screening mammogram. COMPARISON: Comparison is made with relevant prior imaging. Breast composition: There are scattered areas of fibroglandular density. FINDINGS: Right Mammogram: There is a oval well-circumscribed mass in the outer central right breast which corresponds to the focal asymmetry seen on recent screening mammography. This is unchanged in size and appearance compared to prior mammograms. This was further evaluated with ultrasound described below. Right Ultrasound: Targeted ultrasound was performed in the area of mammographic concern. There is an oval well-circumscribed anechoic mass in the right breast at 9:00 3 cm from the nipple measuring 5 x 3 x 5 mm. This demonstrates sonographic features consistent with those of a simple cyst. Procedure Note Laina Warner MD - 01/01/2025 BI MAMMOGRAM DIAGNOSTIC NO TOMOSYNTHESIS NO CAD (RIGHT), BI US BREASTLIMITED (RIGHT) Additional patient information: Focal asymmetry on recent screeningmammogram. COMPARISON: Comparison is made with relevant prior imaging. Breast composition: There are scattered areas of fibroglandular density. FINDINGS: Right Mammogram: There is a oval well-circumscribed mass in the outer central right breastwhich corresponds to the focal asymmetry seen on recent screeningmammography. This is unchanged in size and appearance compared to priormammograms. This was further evaluated with ultrasound described below. Right Ultrasound: Targeted ultrasound was performed in the area ofmammographic concern. There is an oval well-circumscribed anechoic mass inthe right breast at 9:00 3 cm from the nipple measuring 5 x 3 x 5 mm. Thisdemonstrates sonographic features consistent with those of a simplecyst. IMPRESSION: Focal asymmetry seen on recent screening mammogram is stable compared toprior mammograms and demonstrates sonographic features consistent withthose of a simple cyst on ultrasound. No further follow-up is recommended.Patient can return to screening schedule. BI-RADS 2 BENIGN Results and recommendations were communicated to the patient at time ofexamination. us Lynette Licea [facility] IMG US BREAST Final Re sult * BI MAMMOGRAM DIAGNOSTIC NO TOMOSYNTHESIS NO CAD (RIGHT) (01/01/2025 8:56 AM EDT) Anatomical Region Laterality Modality Breast Right, Breast Bilateral Right M ammography 01/01/2025 9:03 AM EDT Impressions 01/01/2025 9:45 AM EDT Focal asymmetry seen on recent screening mammogram is stable compared to prior mammograms and demonstrates sonographic features consistent with those of a simple cyst on ultrasound. No further follow-up is recommended. Patient can return to screening schedule. BI-RADS 2 BENIGN Results and recommendations were communicated to the patient at time of examination. Narrative 01/01/2025 9:45 AM EDT BI MAMMOGRAM DIAGNOSTIC NO TOMOSYNTHESIS NO CAD (RIGHT), BI US BREAST LIMITED (RIGHT) Additional patient information: Focal asymmetry on recent screening mammogram. COMPARISON: Comparison is made with relevant prior imaging. Breast composition: There are scattered areas of fibroglandular density. FINDINGS: Right Mammogram: There is a oval well-circumscribed mass in the outer central right breast which corresponds to the focal asymmetry seen on recent screening mammography. This is unchanged in size and appearance compared to prior mammograms. This was further evaluated with ultrasound described below. Right Ultrasound: Targeted ultrasound was performed in the area of mammographic concern. There is an oval well-circumscribed anechoic mass in the right breast at 9:00 3 cm from the nipple measuring 5 x 3 x 5 mm. This demonstrates sonographic features consistent with those of a simple cyst. Procedure Note Laina Warner MD - 01/01/2025 BI MAMMOGRAM DIAGNOSTIC NO TOMOSYNTHESIS NO CAD (RIGHT), BI US BREASTLIMITED (RIGHT) Additional patient information: Focal asymmetry on recent screeningmammogram. COMPARISON: Comparison is made with relevant prior imaging. Breast composition: There are scattered areas of fibroglandular density. FINDINGS: Right Mammogram: There is a oval well-circumscribed mass in the outer central right breastwhich corresponds to the focal asymmetry seen on recent screeningmammography. This is unchanged in size and appearance compared to priormammograms. This was further evaluated with ultrasound described below. Right Ultrasound: Targeted ultrasound was performed in the area ofmammographic concern. There is an oval well-circumscribed anechoic mass inthe right breast at 9:00 3 cm from the nipple measuring 5 x 3 x 5 mm. Thisdemonstrates sonographic features consistent with those of a simplecyst. IMPRESSION: Focal asymmetry seen on recent screening mammogram is stable compared toprior mammograms and demonstrates sonographic features consistent withthose of a simple cyst on ultrasound. No further follow-up is recommended.Patient can return to screening schedule. BI-RADS 2 BENIGN Results and recommendations were communicated to the patient at time ofexamination. us Lynette Licea PROGRAM ANALYST IMG MG EXAMS Final Re sult documented in this encounter Visit Diagnoses Diagnosis Breast asymmetry- Primary Breast asymmetry Breast asymmetry documented in this encounter Care Teams Clinical Review Specialist Relationship Specialty Start Date End Date Toan Tucker MD [address] [facility] [address] [place] [address] [email or web address] PCP - General Internal Medicine 03/23/22 Qi Covington MD [address] [facility] [address] [place] [address] [email or web address] Radiation Oncology 02/15/23 Oliva Spears MD 800 [facility] [place] [address] Obstetrics and Gynecology 08/05/23 Ban Pitt MD 55 [facility] [address] [place] [address] [email or web address] Surgical Oncology 08/05/23 documented as of this encounter Additional Source Comments The information contained in this document represents components of the legal health record. It is not the complete legal health record.[facility]
--- OUTSIDE RECORDS SUMMARY | 2025-05-11 16:49 | XMS_ITS | Encounter Summary ---
Author Organization [facility] Address [address] [facility] [address] [place] [address] Phone Care Team Providers Care Dye House Hand Name Role Phone Toan Tucker MD Primary Care Provider [phone] Qi Covington MD Unavailable Oliva Spears MD Unavailable Ban Pitt MD Unavailable Encounter Details Date Type Department Care Team (Late st Contact Info) Description 01/18/2023 Ancillary Orders [facility] 2013 [place] [address] Ban Pitt MD [address] [address] [email or web address] Malignant neoplasm of left female breast, unspecified estrogen receptor status, unspecified site of breast Social History Tobacco Use Types Packs/Day Years Used Date Smoking Tobacco: Former Cigarettes Alcohol Use Standard Drinks/Week Comments Not Currently [...] st Contact Info) Description 01/12/2025 Procedure Pass [facility] 15 [facility] [address] [place] [address] 01/18/2025 Procedure Pass [facility], [facility] [address] [address] 08/16/2025 9:55 AM EDT Appointment [facility], [facility] [address] [address] Cindy Cardona PA-C [address] [place] [address] [email or web address] Ward Watkins MD [address] [address] [email or web address] 08/16/2025 11:30 AM EDT Office Visit [facility], Isamar Connell [place] [facility], [facility] [place] [facility] [place] 300 [facility] 4th [place] [address] Ward Watkins MD [address] [address] [email or web address] 12/31/2025 10:30 AM EDT Office [facility] 15 [facility], [address] [place] [address] Lynette Licea, ENTERTAINER & COMIC 32 [facility] [place] [address] [email or web address] 12/31/2025 11:40 AM EDT Appointment [facility] Breast Evaluation Center 15 [facility] [address] [place] [address] Lynette Licea, ENTERTAINER & COMIC 32 [facility] [address] [place] [address] [email or web address] 06/02/2026 2:20 PM EST Office Visit [facility] Comprehensive Ophthalmology Service [address] [address] Panda Recinos MD 243 [place] [address] [email or web address] documented as of this encounter Results * BI MAMMOGRAM BREAST SPECIMEN POST SURGICAL BIOPSY NO TOMOSYNTHESIS NO CAD (LEFT) (01/23/2023 11:23 AM EDT) Anatomical Region Laterality Modality Breast Left Left Mammography 01/23/2023 11:3 3 AM EDT Impressions 01/23/2023 4:21 PM EDT Specimen imaging as described. Findings communicated intraoperatively to the breast surgeon, Dr. Ban Pitt, on 01/23/2023 at 11:32 AM. ATTESTATION: I, Dr. David Recinos as teaching physician, have reviewed the images for this case and if necessary edited the report originally created by Dr. Nathanael Rodriguez. Narrative 01/23/2023 4:21 PM EDT BI MAMMOGRAM BREAST SPECIMEN POST SURGICAL BIOPSY NO TOMOSYNTHESIS NO CAD (LEFT) Additional patient information: Specimen imaging performed during lumpectomy. COMPARISON: Comparison is made with relevant prior imaging. FINDINGS: Targeted biopsy clips (Q and X), an additional non-targeted ribbon biopsy clip, and the Tag localizer device are present in the specimen. us Ban Pitt MD IMG BI IRP GUIDED BREAST CA OC Final Result documented in this encounter Visit Diagnoses Diagnosis Malignant neoplasm of left female breast, unspecified estrogen receptor status, unspecified site of breast Malignant neoplasm of left female breast, unspecified estrogen receptor status, unspecified site of breast documented in this encounter Care Teams Dye House Hand Relationship Specialty Start Date End Date Toan Tucker MD [address] [place] [address] PCP - General Internal Medicine 03/23/22 Qi Covington MD [address] [place] [address] [address] [place] [address] Radiation Oncology 02/15/23 Oliva Spears MD 800 [facility] [place] [address] Obstetrics and Gynecology 08/05/23 Ban Pitt MD [address] [place] [address] [email or web address] Surgical Oncology 08/05/23 documented as of this encounter Additional Source Comments The information contained in this document represents components of the legal health record. It is not the complete legal health record.[facility]
--- OUTSIDE RECORDS SUMMARY | 2025-05-11 16:49 | XMS_ITS ---
Author Name [facility]ISP Organization Unknown Results Test Name/Text Value Interpretation Date Range Source MAGNESIUM 1.9 mg/dL 04/13/2025 1.8 - 3 [facility] SPECIFIC GRAVITY, POC 1.02 02/08/2025 1.003 - 1.035 [facility] BILI, POC Negative 02/08/2025 - [facility] UROBILINOGEN, POC 0.2 EU/dL 02/08/2025 - [facility] BODY MECHANIC APPRENTICE ID [id number] 02/08/2025 [facility] GLUCOSE URINE, POC Negative 02/08/2025 - [facility] PH, POC 6.5 02/08/2025 5 - 8 [facility] CLARITY, POC Clear 02/08/2025 - [facility] NITRITE, POC Negative 02/08/2025 - [facility] COLOR, POC Yellow 02/08/2025 - [facility] BLOOD, URINE, POC Negative 02/08/2025 - [facility] TEST STRIP LOT # 02/08/2025 [facility] TEST STRIP EXP DATE 02/08/2025 [facility] PROTEIN, POC Negative 02/08/2025 - [facility] KETONES URINE Negative 02/08/2025 - [facility] INSTRUMENT ID [id number] 02/08/2025 [facility] LEUKOCYTE, POC Negative 02/08/2025 - [facility] CERULOPLASMIN 31.0 mg/dL Normal 09/09/2024 16 - 45 [facility] WEOEE-3-BEVRMDBTFLL 168.0 mg/dL Normal 09/09/2024 90 - 20 0 [facility] MITOCHONDRIAL (M2) ANTIBODY, IGG 3.1 Units Normal 09/09/2024 0 - 24.9 [facility] HEPATITIS A ANTIBODIES, TOTAL Negative Normal 09/09/2024 - [facility] HEPATITIS C ANTIBODY (IA5) Negative Normal 09/09/2024 - [facility] HEPATITIS B SURFACE ANTIGEN (IA5) Negative Normal 09/09/2024 - [facility] HEPATITIS B VIRUS CORE AB, QUAL (IA5) Negative Normal 09/09/2024 - [facility] HEPATITIS B SURFACE AB, QUANT 0.8 mIU/mL Normal 09/09/2024 - 12 [facility] HEPATITIS B SURFACE ANTIBODY Negative Normal 09/09/2024 [facility] IRON 77.0 ug/dL Normal 09/09/2024 28 - 170 [facility] IRON BINDING CAPACITY 419.0 ug/dL Normal 09/09/2024 260 - 490 [facility] IRON SATURATION (%) IN SER/PLAS 18.0 % Normal 09/09/2024 [facility] FERRITIN 51.0 ng/mL Normal 09/09/2024 6 - 307 [facility] IMMUNOGLOBULIN A 194.0 mg/dL Normal 09/09/2024 82 - 460 [facility] INR 1.0 ratio Normal 09/09/2024 0.9 - 1.1 [facility] PROTHROMBIN TIME (PT) 11.7 seconds Normal 09/09/2024 10.4 - 13 [facility] FECAL IMMUNOCHEMICAL HB (QUALITATIVE INTERPRETATION) Negative Normal 07/30/2024 - [facility] POCT CREATININE 0.9 mg/dL Normal 01/25/2024 0.6 - 1.2 [facility] ISTAT SAMPLE TYPE unknown Normal 01/25/2024 [facility] History of Medication Use Medication Directions Dispensed Refills Start Date End Date Stat LORazepam (ATIVAN) 0.5 mg tablet Take 0.5 mg by mouth daily as needed. 07/16/2024 active methIMAzole (TAPAZOLE) tablet 5 mg Take 1 tablet (5 mg total) by mouth 3 (three) times a day. 09/02/2023 5 active omeprazole (PriLOSEC) 20 MG capsule 08/25/2023 active methIMAzole (TAPAZOLE) tablet 5 mg Take 0.5 tablets (2.5 mg total) by mouth daily. 07/19/2023 active omeprazole (PriLOSEC) 20 mg capsule 05/09/2023 4 aborted omeprazole (PriLOSEC) 20 mg capsule TAKE 1 CAPSULE (20 MG TOTAL) BY MOUTH IN THE MORNING 05/07/2023 5 active LORazepam (ATIVAN) 0.5 MG tablet Take 1 tablet (0.5 mg total) by mouth daily as needed. 01/13/2023 active polyethylene glycol-electrolytes (TriLyte With Flavor Packets) 420 gram solution For colonoscopy. Please follow TriLyte/Dulcolax prep instructions provided to you during office visit 12/06/2022 active amoxicillin-pot clavulanate (AUGMENTIN) 875-125 mg per tablet 1 tablet. 11/28/2022 active methIMAzole (TAPAZOLE) 5 mg tablet Take 2.5 mg by mouth. 10/14/2020 active lisinopril-hydrochlor othiazide (PRINZIDE,ZESTORETIC) tablet 20-25 mg Take 1 tablet by mouth daily. 11/07/2017 active amoxicillin 875 mg-potassium clavulanate 125 mg tablet TAKE 1 TABLET BY MOUTH EVERY 12 HOURS FOR 10 DAYS active Flowflex COVID-19 Antigen Home Test kit USE DIRECTED active letrozole 2.5 mg tablet TAKE 1 TABLET BY MOUTH EVERY DAY active lisinopril 20 mg-hydrochlorothiazid e 25 mg tablet TAKE 1 TABLET BY MOUTH EVERY DAY active lorazepam 0.5 mg tablet TAKE 1 TABLET BY MOUTH EVERY DAY NEEDED active loteprednol etabonate 0.5 % eye drops,suspension INSTILL 1 DROP TWICE A DAY INTO BOTH EYES active methimazole 5 mg tablet TAKE A 1/2 TABLET BY MOUTH ONCE DAILY FOR 90 DAYS active nitrofurantoin macrocrystal 100 mg capsule TAKE 1 CAPSULE BY MOUTH TWICE A DAY FOR 5 DAYS. active omeprazole 20 mg capsule,delayed release TAKE 1 CAPSULE (20 MG TOTAL) BY MOUTH IN THE MORNING active peg-electrolyte solution 420 gram oral solution FOR COLONOSCOPY -PLEASE FOLLOW TRILYTE/DULCOLAX PREP INSTRUCTIONS PROVIDED DURING OFFICE VISIT active Cholecalciferol (D3-1000) 25 MCG (1000 UT) capsule Take by mouth. act esvin cholecalciferol, vitamin D3, 1,000 unit capsule Take by mouth. active letrozole (FEMARA) 2.5 mg chemo tablet Take 2.5 mg by mouth in the morning. Take with or without food.. active lisinopril-hydrochlor othiazide (PRINZIDE,ZESTORETIC) 10-12.5 mg per tablet Take by mouth. active Misc Natural Products (GLUCOSAMINE CHONDROITIN ADV PO) daily. activ e vit A/vit C/vit E/zinc/copper (PRESERVISION AREDS ORAL) Take by mouth daily. active Allergies Allergen Reaction Severity Comment Documented Date Source Statu s CODEINE NAUSEA ONLY 02/15/2015 [facility] active Problems Problem Status Onset Date Problem Type Date of Resolution Source Hepatic steatosis active 2024-05-29 ProblemAct [facility] Hepatic cyst active 2024-05-29 ProblemAct [facility] Fibroid uterus active 2023-12-10 ProblemAct [facility] History of diverticulitis active 2023-05-07 ProblemAct [facility] History of left breast cancer active 2023-12-10 ProblemAct [facility] Gastroesophageal reflux disease active 2023-05-07 ProblemAct [facility] Flatulence active 2024-08-06 ProblemAct [facility] History of colon polyps active 2024-05-29 ProblemAct [facility] Toxic multinodular goiter active EncounterDiagnosisAct [facility]AN Osteoarthritis of left knee joint active 2023-11-25 ProblemAct [facility] Osteoarthritis of right knee joint active 2022-11-19 ProblemAct [facility] Pain of left knee joint active 2022-11-19 ProblemAct [facility] Pain of right knee joint active 2023-11-25 ProblemAct [facility] Encounters Encounter Type Encounter Reason Primary Diagnosis Location Date Ambulatory Gastro-esophageal reflux disease without Gastro-esophageal reflux disease without esophagitis [facility] 04/13/2025 Ambulatory Gastro-esophageal reflux disease without Gastro-esophageal reflux disease without esophagitis [facility] 04/13/2025 Ambulatory Encounter for gynecological examination Encounter for gynecological examination (general) (routine) without abnormal findings [facility] 02/08/2025 Ambulatory Fatty (change of) liver, not elsewhere c Fatty (change of) liver, not elsewhere classified [facility] 09/09/2024 Ambulatory Fatty (change of) liver, not elsewhere c Fatty (change of) liver, not elsewhere classified [facility] 08/05/2024 Ambulatory Gastro-esophageal reflux disease without Gastro-esophageal reflux disease without esophagitis [facility] 08/05/2024 Ambulatory Fatty (change of) liver, not elsewhere c Fatty (change of) liver, not elsewhere classified [facility] 06/02/2024 Ambulatory Fatty (change of) liver, not elsewhere c Fatty (change of) liver, not elsewhere classified [facility] 05/29/2024 Ambulatory Leiomyoma of uterus, unspecified Leiomyoma of uterus, unspecified [facility] 01/25/2024 Ambulatory Leiomyoma of uterus, unspecified Leiomyoma of uterus, unspecified [facility] 12/10/2023 Ambulatory [facility] 11/25/2023 Ambulatory [facility] 10/30/2023 Ambulatory 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 [facility] 09/02/2023 Ambulatory Leiomyoma of uterus, unspecified Leiomyoma of uterus, unspecified [facility] 05/31/2023 Ambulatory Abnormal findings on diagnostic imaging Abnormal findings on diagnostic imaging of other abdominal regions, including retroperitoneum [facility] 05/31/2023 Ambulatory Gastro-esophageal reflux disease without Gastro-esophageal reflux disease without esophagitis [facility] 05/07/2023 Ambulatory [facility] 12/21/2022 Ambulatory [facility] 12/21/2022 Ambulatory [facility] 12/21/2022 Ambulatory [facility] 12/21/2022 Ambulatory [facility] 12/21/2022 Ambulatory [facility] 12/21/2022 Ambulatory [facility] 12/21/2022 Ambulatory [facility] 12/21/2022 Ambulatory Unspecified lump in the left breast, upp Unspecified lump in the left breast, upper outer quadrant [facility] 12/21/2022 Ambulatory Unspecified lump in the left breast, upp Unspecified lump in the left breast, upper outer quadrant [facility] 12/21/2022 Ambulatory Diverticulitis o f intestine, part unspecified, without perforation or abscess without bleeding [facility] 12/06/2022 Ambulatory [facility] 11/19/2022 Ambulatory [facility] 11/19/2022 Ambulatory [facility] 10/08/2022 Ambulatory Encounter for gynecological examination (general) (routine) without abnormal findings [facility] 09/11/2022 Care Team Organization Name Specialty Phone Email Start Date End Da te [facility] VERONIKA LAWSON Primary Care [facility] 03/29/2023 024 [facility] VERONIKA LAWSON Primary Care 09/11/2022 0 09/11/2022 [facility] VERONIKA LAWSON Primary Care 09/11/2022
--- OUTSIDE RECORDS SUMMARY | 2025-05-11 16:50 | XMS_ITS | Encounter Summary ---
Author Organization [facility] Address 399 [employer] [address] [place] [address] Phone Care Team Providers Care Die Lay Out Worker Name Role Phone Toan Tucker MD Primary Care Provider Qi Covington MD Unavailable [phone] Oliva Spears MD Unavailable Ban Pitt MD Unavailable Encounter Details Date Type Department Care Team (Late st Contact Info) Description 01/07/2023 [facility] 2013 [place] [address] Ban Pitt MD [address] [address] [email or web address] Social History Tobacco Use Types Packs/Day [...] st Contact Info) Description 01/12/2025 Procedure Pass [email or web address] Breast [facility] Center [address] [facility] [address] [place] [address] 01/18/2025 Procedure Pass [facility], MRI [address] [address] 08/16/2025 9:55 AM EDT Appointment [facility], [facility] [address] [address] Cindy Cardona PA-C 450 [place] [address] [email or web address] Ward Watkins MD [address] [place] [address] [email or web address] 08/16/2025 11:30 AM EDT Office Visit [facility], Isamar Connell [place] [facility], [facility] [place] [address] [address] Ward Watkins MD [address] [address] [email or web address] 12/31/2025 10:30 AM EDT Office Visit [facility] Comprehensive Breast Evaluation Center [address] [facility], [address] [place] [address] Lynette Licea, [facility] 32 [facility] [place] [place] [address] [email or web address] 12/31/2025 11:40 AM EDT Appointment [email or web address] Breast Evaluation Center [address] [facility] [address] [place] [address] Lynette Licea, ELECTRONIC PARTS SALESPERSON 32 [facility] [address] [place] [address] [email or web address] 06/02/2026 2:20 PM EST Office Visit [facility] [address] [place] [address] Panda Recinos MD 243 [place] [address] [email or web address] documented as of this encounter Visit Diagnoses Not on filedocumented in this encounter Care Teams Die Lay Out Worker Relationship Specialty Start Date End Date Toan Tucker MD [address] [place] [address] 100 [place] [address] [email or web address] PCP - General Internal Medicine 03/23/22 Qi Covington MD 32 [facility] [address] [place] [address] [email or web address] Radiation Oncology 02/15/23 Oliva Spears MD 800 [facility] [place] [address] Obstetrics and Gynecology 08/05/23 Ban Ptit MD 55 [facility] [address] [place] [address] [email or web address] Surgical Oncology 08/05/23 documented as of this encounter Additional Source Comments The information contained in this document represents components of the legal health record. It is not the complete legal health record.[facility]
--- OUTSIDE RECORDS SUMMARY | 2025-05-11 16:50 | XMS_ITS | Clinical Summary ---
Author Organization [facility] Prior to 10/24/[address] [place] [address] Care Team Providers Care Auto Bumper Straightener Name Role Phone Toan Tucker MD Primary Care Provider [phone] Allergies Active Allergy Reactions Criticality Noted Date [...] 1 - PCV) 10/26/2020 Influenza Vaccine (#1) 2025 RSV Adult > 60+ Yrs or Pregn ant (1 - 1-dose 75+ series) 10/26/2030 Hepatitis B Vaccines Aged Out No long er eligible based on patient's age to complete this topic RSV Ped < 20 months Aged Out No longe r eligible based on patient's age to complete this topic Care Teams Auto Bumper Straightener Relationship Specialty Start Date End Date Toan Tucker MD 701 [place] [address] PCP - General Internal Medicine 08/29/23
--- OUTSIDE RECORDS SUMMARY | 2025-05-11 16:50 | XMS_ITS | Encounter Summary ---
Author Organization [facility] Address 399 [facility] [address] [place] [address] Phone Care Team Providers Care Collet Maker Name Role Phone Toan Tucker MD Primary Care Provider [phone] Qi Covington MD Unavailable [phone] Oliva Spears MD Unavailable Ban Pitt MD Unavailable Encounter Details Date Type Department Care Team (Late st Contact Info) Description 01/07/2023 Ancillary Orders [facility] General Imaging 55 [place] [address] Ban Pitt MD [address] [address] [email or web address] Malignant neoplasm of left female breast, unspecified [...] st Contact Info) Description 01/12/2025 Procedure Pass [facility] Breast Evaluation [place] [address] [facility] [address] [place] [address] 01/18/2025 Procedure Pass [facility], [facility] [address] [address] 08/16/2025 9:55 AM EDT Appointment [facility], [facility] [address] [address] Cindy Cardona PA-C [address] [place] [address] [email or web address]. [facility] Ward Watkins MD [address] [place] [address] [email or web address]. [facility] 08/16/2025 11:30 AM EDT Office Visit [facility], Isamar Connell [place] [facility], [facility] [address] [address] Ward Watkins MD [address] [place] [address] [email or web address] 12/31/2025 10:30 AM EDT Office Visit [facility] [address] [facility], [address] [place] [address] Lynette Licea, MAGISTRATE ASSISTANT 32 [facility] [address] [place] [address] [email or web address] 12/31/2025 11:40 AM EDT Appointment [facility] Breast Evaluation Center [address] [facility] [address] [place] [address] Lynette Licea, MAGISTRATE ASSISTANT 32 [facility] [place] [address] [place] [address] [email or web address] 06/02/2026 2:20 PM EST Office Visit [facility] Comprehensive Ophthalmology Service [address] [place] [address] Panda Recinos MD 243 [place] [address] [email or web address] documented as of this encounter Results * Mammogram Outside With Interpretation Or Consult (01/07/2023 2:08 PM EDT) 01/07/2023 2:09 PM EDT [facility] - 01/08/2023 8:06 AM EDT BI MAMMOGRAM OUTSIDE WITH INTERPRETATION OR CONSULT TECHNIQUE: Outside images presented for review.. This outside examination can not be read because: The imaging is absent or inadequate. Bilateral screening mammogram missing. Diagnostic from 12/18/2022 is missing. ATTESTATION: IDr. Laina as teaching physician, have reviewed the images for this case and if necessary edited the report originally created by Delvis Mejia. Procedure Note Laina Warner MD - 01/08/2023 BI MAMMOGRAM OUTSIDE WITH INTERPRETATION OR CONSULT TECHNIQUE: Outside images presented for review.. This outside examination can not be read because: The imaging is absent or inadequate. Bilateral screening mammogrammissing. Diagnostic from 12/18/2022 is missing. ATTESTATION: IDr. Laina as teaching physician, have reviewedthe images for this case and if necessary edited the report originallycreated by Delvis Mejia. us Ban Pitt MD IMG OUTSIDE IMAGING W/ INTE RPRETATION Final Result [address] [address] documented in this encounter Visit Diagnoses Diagnosis Malignant neoplasm of left female breast, unspecified estrogen receptor status, unspecified site of breast Malignant neoplasm of left female breast, unspecified estrogen receptor status, unspecified site of breast documented in this encounter Care Teams Collet Maker Relationship Specialty Start Date End Date Toan Tucker MD 701 [facility] 100 [place] [address] [email or web address] PCP - General Internal Medicine 03/23/22 Qi Covington MD 32 [facility] [address] [place] [address] [email or web address] Radiation Oncology 02/15/23 Oliva Spears MD 800 [facility] [address] Obstetrics and Gynecology 08/05/23 Ban Pitt MD [address] [facility] [address] [place] [address] [email or web address] Surgical Oncology 08/05/23 documented as of this encounter Additional Source Comments The information contained in this document represents components of the legal health record. It is not the complete legal health record.[facility]
--- OUTSIDE RECORDS SUMMARY | 2025-05-11 16:50 | XMS_ITS | Encounter Summary ---
Author Organization [facility] Address [facility] [address] [place] [address] Phone Care Team Providers Care Band Master Name Role Phone Toan Tucker MD Primary Care Provider Qi Covington MD Unavailable Oliva Spears MD Unavailable Ban Pitt MD Unavailable [phone] Encounter Details Date Type Department Care Team (Late st Contact Info) Description 03/23/2022 Procedure Pass [facility], [employer] [facility] [address] [place] [address], 2nd [place] [address] Social History Tobacco Use Types Packs/Day Years Used Date Smoking Tobacco: Never Assessed Comments Unknown Sex and Gender Information Value Date Recorded Sex Assigned at Female 03/23/2022 2:02 PM EDT Legal Sex Female 1:57 PM EDT Gender Identity Female 03/23/2022 2:02 PM EDT Sexual Orientation Straight 03/23/2022 2: 02 PM EDT documented as of this encounter Last Filed Vital Signs Vital Sign Reading Time Taken Comments Blood Pressure - - Pulse - - Temperature - - Respiratory Rate - - Oxygen Saturation - - Inhaled Oxygen Concentration - - Weight 83.9 kg (185 lb) 03/23/2022 2:52 PM EDT Height 151.1 cm (4' 11.5 ) 03/23/2022 2:52 PM ED T Body Mass Index 36.74 03/23/2022 2:52 PM EDT documented in this encounter Plan of Treatment Upcoming Encounters Date Type Department Care Team (Late st Contact Info) Description 01/12/2025 Procedure Pass [facility] [place] [facility] [address] [place] [address] 01/18/2025 Procedure Pass [facility], [facility] [address] [address] 08/16/2025 9:55 AM EDT Appointment [facility], [facility] [address] [address] Cindy Cardona PA-C 450 [place] [address] [email or web address] Ward Watkins MD [address] [place] [address] [email or web address]@[email or web address] 08/16/2025 11:30 AM EDT Office Visit [facility], Isamar Connell [place] [facility], [facility] [address] [address] Ward Watkins MD [address] [place] [address] [email or web address]. [email or web address] 12/31/2025 10:30 AM EDT Office Visit [facility] [address], [address] [place] [address] Lynette Licea, [facility] 32 [facility] [address] [place] [address] [email or web address] 12/31/2025 11:40 AM EDT Appointment [facility] [place] [facility] [address] [place] [address] Lynette Licea, PA[employer]ROLL LEAD 32 [facility] [address] [place] [address] [email or web address] 06/02/2026 2:20 PM EST Office Visit [facility] [address] [place] [address] Panda Recinos MD 243 [place] [address] [email or web address] documented as of this encounter Visit Diagnoses Not on filedocumented in this encounter Care Teams Band Master Relationship Specialty Start Date End Date Toan Tucker MD [address] [place] [address] 100 [place] [address] [email or web address] PCP - General Internal Medicine 03/23/22 Qi Covington MD 32 [facility] [address] [place] [address] [email or web address] Radiation Oncology 02/15/23 Oliva Spears MD [address] [place] [address] [place] [address] Obstetrics and Gynecology 08/05/23 Ban Pitt MD 55 [facility] [address] [place] [address] ADELA@[email or web address] Surgical Oncology 08/05/23 documented as of this encounter Additional Source Comments The information contained in this document represents components of the legal health record. It is not the complete legal health record.[facility]
--- OUTSIDE RECORDS SUMMARY | 2025-05-11 16:50 | XMS_ITS | Encounter Summary ---
Author Organization [facility] Address [address] [facility] [address] [place] [address] Phone Care Team Providers Care Electric Train Driver Name Role Phone Toan Tucker MD Primary Care Provider [phone] Qi Covington MD Unavailable [phone] Oliva Spears MD Unavailable Ban Pitt MD Unavailable [phone] Encounter Details Date Type Department Care Team (Late st Contact Info) Description 04/16/2023 Procedure Pass [facility] [address] [facility] [address] [place] [address] Social History Tobacco Use Types Packs/Day Years [...] st Contact Info) Description 01/12/2025 Procedure Pass [facility] [address] [facility] [address] [place] [address] 01/18/2025 Procedure Pass [facility] MRI 300 [facility] 4th [place] [address] 08/16/2025 9:55 AM EDT Appointment [facility], [facility] [address] [address] Cindy Cardona PA-C 450 [place] [address] [email or web address] Ward Watkins MD [address] [address] [email or web address]@[email or web address] 08/16/2025 11:30 AM EDT Office Visit [facility], Isamar Connell [place] [facility], [facility] [address] [address] Ward Watkins MD [address] [address] [email or web address] [email or web address] 12/31/2025 10:30 AM EDT Office Visit [facility] Comprehensive Breast Evaluation Center [address] [facility], [address] [place] [address] Lynette Licea, QUALITY HEAD 32 [facility] [address] [place] [address] [email or web address] 12/31/2025 11:40 AM EDT Appointment [facility] [address] [facility] [address] [place] [address] Lynette Licea, QUALITY HEAD [address] [facility] [address] [place] [address] [email or web address] 06/02/2026 2:20 PM EST Office Visit [facility] Ophthal[facility] [address] [place] [address] Panda Recinos MD 243 [place] [address] [email or web address] documented as of this encounter Visit Diagnoses Not on filedocumented in this encounter Care Teams Electric Train Driver Relationship Specialty Start Date End Date Toan Tucker MD 701 [facility] 100 [place] [address] [email or web address] PCP - General Internal Medicine 03/23/22 Qi Covington MD 32 [facility] [address] [place] [address] [email or web address] Radiation Oncology 02/15/23 Oliva Spears MD 800 [facility] [place] [address] Obstetrics and Gynecology 08/05/23 Ban Pitt MD 55 [facility] 7[address] [place] [address] [email or web address] Surgical Oncology 08/05/23 documented as of this encounter Additional Source Comments The information contained in this document represents components of the legal health record. It is not the complete legal health record.[facility]
--- OUTSIDE RECORDS SUMMARY | 2025-05-11 16:50 | XMS_ITS | Encounter Summary ---
Author Organization [facility] Address [address] [place] [address] [place] [address] Phone Care Team Providers Care Director Corporate Compliance Name Role Phone Toan Tucker MD Primary Care Provider [phone] Qi Covington MD Unavailable [phone] Oliva Spears MD Unavailable Ban Pitt MD Unavailable [phone] Reason for Referral * MRI/CAT Scan - Closed Specialty Diagnoses / Procedures Referred By Contwisam t Referred To Contact Radiology Diagnoses Dense breast tissue on mammogram Procedures MRI Breast (Bilateral) CHG MRI BREAST WITHOUT&WITH CONTRAST W/CAD BILATERAL Oliva Spears MD [address] [place] [address] Phone: tel: fax: Referral ID Status Reason Start Date Expiration Date Visits Re quested Visits Authorized [id number] Closed 03/23/2022 04/23/2022 1 1 Encounter Details Date Type Department Care Team (Late st Contact Info) Description 03/23/2022 Ancillary Orders [facility] [address] [place] [address], 2nd [place] [address] Oliva Spears MD [address] [place] [address] Dense breast tissue on mammogram Social History Tobacco Use Types Packs/Day Years [...] [facility] [address] [facility] [address] [place] [address] 01/18/2025 Procedure Pass [facility], [facility] [address] [address] 08/16/2025 9:55 AM EDT Appointment [facility], [facility] [address] [address] Cindy Cardona PA-C [address] [place] [address] [email or web address] Ward Watkins MD [address] [place] [address] [email or web address] 08/16/2025 11:30 AM EDT Office Visit [facility], Isamar Connell [place] [facility], [facility] at [address] [address] Ward Watkins MD [address] [place] [address] [email or web address]. [facility] 12/31/2025 10:30 AM EDT Office Visit [facility] Cancer [facility] [address] [facility], [address] [place] [address] Lynette Licea, SEFERINO [address] [facility] [address] [place] [address] [email or web address] 12/31/2025 11:40 AM EDT Appointment [facility] Center [address] [facility] [address] [place] [address] Lynette Licea, SEFERINO [address] [facility] [address] [place] [address] [email or web address] 06/02/2026 2:20 PM EST Office Visit [facility] [address] [address] Panda Recinos MD 243 [place] [address] [email or web address] documented as of this encounter Results * BI MRI BREAST WITH AND WITHOUT CONTRAST (BILATERAL) (03/29/2022 11:32 AM EDT) Anatomical Region Laterality Modality Breast Left, Breast Right, Breast Bilateral Bila teral Magnetic Resonance 03/29/2022 Impressions 03/29/2022 3:10 PM EDT No MRI evidence of malignancy in either breast. BI-RADS Category 2: Benign Finding Patient's information is entered into a reminder system with a target due date for the next exam. We support the [place] [employer] guidelines for early breast cancer detection in women at increased risk for breast cancer. These guidelines recommend breast MRI in combination with mammography for women at 20% or greater lifetime risk of breast cancer. Narrative 03/29/2022 3:10 PM EDT HISTORY: 66 year old patient with a family history of breast cancer and dense breasts presents for high risk screening breast MRI. Personal history of benign left breast biopsy per patient report. COMPARISON: No prior images are available for comparison at this time. Breast center coordinators will reach out to patient to obtain prior images and reports. TECHNIQUE: The patient was placed prone in a bilateral dedicated 16 channel open breast coil ([place], Invivo) and the following series were obtained with a 3.0 Viktoria 750 MR scanner ([place]): 3-plane localizer; axial non fat suppressed T1; axial fat suppressed 3D T2 (CUBE), one pre contrast and two post-contrast axial dynamic fat suppressed 3D T1 (VIBRANT) (initial post contrast centered at 75 seconds and delayed post contrast centered at 195 seconds after contrast injection initiated). Contrast was delivered as a power-injected (2 cc/sec) weight-adjusted (0.1 mm/kg) dose of gadolinium followed by a 15 cc saline flush. Multi-planar reconstructions in sagittal and coronal orientations were created of the immediate post-contrast T1-weighted images. Subtraction images were created by subtracting the pre-contrast from immediate post-contrast T1-weighted images, and were presented both in the axial plane and in 3D reconstructions (maximum intensity projections). Enhancement kinetics (initial and delayed) were evaluated for the dynamic phase series and displayed with color overlay maps. Initial enhancement thresholds of 50% increase for medium uptake and 100% increase for rapid uptake were applied, and delayed curve types were defined as washout for 10% or greater decrease in signal intensity, plateau for less than 10% change in signal intensity, and persistent enhancement for 10% or greater increase in signal intensity. BREAST MRI FINDINGS: There is heterogenous fibroglandular tissue. There is minimal background parenchymal enhancement. There is an area of prior needle biopsy in the left breast. There is no suspicious mass or area of abnormal enhancement in either breast. There is no abnormality of either axilla, chest wall, or nipple areolar complex. Procedure Note Laina Warner MD - 03/29/2022 HISTORY: 66 year old patient with a family history of breast cancer and densebreasts presents for high risk screening breast MRI. Personal history ofbenign left breast biopsy per patient report. COMPARISON: No prior images are available for comparison at this time. Breast centercoordinators will reach out to patient to obtain prior images andreports. TECHNIQUE: The patient was placed prone in a bilateral dedicated 16 channel openbreast coil ([place], Invivo) and the following series were obtainedwith a 3.0 Viktoria 750 MR scanner ([place]): 3-plane localizer; axial non fatsuppressed T1; axial fat suppressed 3D T2 (CUBE), one pre contrast and twopost-contrast axial dynamic fat suppressed 3D T1 (VIBRANT) (initial postcontrast centered at 75 seconds and delayed post contrast centered at 195seconds after contrast injection initiated). Contrast was delivered as apower-injected (2 cc/sec) weight-adjusted (0.1 mm/kg) dose of gadoliniumfollowed by a 15 cc saline flush. Multi-planar reconstructions in sagittal and coronal orientations werecreated of the immediate post-contrast T1-weighted images. Subtractionimages were created by subtracting the pre-contrast from immediatepost-contrast T1-weighted images, and were presented both in the axialplane and in 3D reconstructions (maximum intensity projections).Enhancement kinetics (initial and delayed) were evaluated for the dynamicphase series and displayed with color overlay maps. Initial enhancementthresholds of 50% increase for medium uptake and 100% increase for rapiduptake were applied, and delayed curve types were defined as washout for10% or greater decrease in signal intensity, plateau for less than 10%change in signal intensity, and persistent enhancement for 10% or greaterincrease in signal intensity. BREAST MRI FINDINGS: There is heterogenous fibroglandular tissue. There is minimal background parenchymal enhancement. There is an area of prior needle biopsy in the left breast. There is no suspicious mass or area of abnormal enhancement in eitherbreast. There is no abnormality of either axilla, chest wall, or nipple areolar complex. IMPRESSION: No MRI evidence of malignancy in either breast. BI-RADS Category 2: Benign Finding Patient's information is entered into a reminder system with a target duedate for the next exam. We support the [place] [employer] guidelines for early breast cancerdetection in women at increased risk for breast cancer. These guidelinesrecommend breast MRI in combination with mammography for women at 20% orgreater lifetime risk of breast cancer. Oliva Spears MD IMG MR BREAST F inal Result documented in this encounter Visit Diagnoses Diagnosis Dense breast tissue on mammogram Dense breast tissue on mammogram documented in this encounter Care Teams Director Corporate Compliance Relationship Specialty Start Date End Date Toan Tucker MD 701 [facility] 100 [place] [address] [email or web address] PCP - General Internal Medicine 03/23/22 Qi Covington MD [address] [facility] [address] [place] [address] [email or web address] Radiation Oncology 02/15/23 Oliva Spears MD [address] [place] [address] Obstetrics and Gynecology 08/05/23 Ban Pitt MD [address] [facility] [address] [place] [address] [email or web address] Surgical Oncology 08/05/23 documented as of this encounter Additional Source Comments The information contained in this document represents components of the legal health record. It is not the complete legal health record.[facility]
== END 2025-05-11 14:11 | disposition home or self-care (01) ==
LOC: HO.HUSH 12:56
PROVIDERS: PCP Internal Medicine; Visit Provider Nurse Practitioner Family
DX: N28.1 Cyst of kidney, acquired (principal); N39.3 Stress incontinence (female) (male); Z87.898 Personal history of other specified conditions
CPT/HCPCS: 99213